=== PATIENT | female | born 1980 | race American Indian/Alaskan Native ===

== ENCOUNTER 2019-05-16 05:09 | Inpatient (IN) | payer MEDICAID, OTHER ==
--- NOTE | 2019-05-16 05:19 | Event Note ---
Date: 05/16/19 Medical screening examination: 38-year-old female, reports that she is not , reports history of hypertension, noncompliance with medications, reports that she has not delivered given within the past 6 weeks, states that she went to bed at 7:00, and woke up at around 3:00, found to have right- sided facial asymmetry, with bilateral forehead sparing, and dysarthria. Accu- Chek within normal limits. Found to be very hypertensive, systolic 258. Code stroke called overhead. Given wake up symptoms, unlikely to be candidate for TPA.
--- NOTE | 2019-05-16 05:44 | Cat Scan Report ---
CT head/brain wo con INDICATION: MAIN: Stroke symptoms. LT SIDED FACIAL DROOPING, SLURRED SPEECH.. TECHNIQUE: All CT scans at this location are performed using the following dose modulation technique: Automated exposure control. CONTRAST: None. COMPARISON: None available. FINDINGS: The ventricular system is appropriate in size and configuration without midline shift. Nega tive for mass, acute stroke or hemorrhage. A chronic white matter infarct is seen adjacent to the fro ntal horn of the left lateral ventricle. Mild chronic appearing white matter changes also seen adjace nt to the frontal horn of the right lateral ventricle. Imaged portions of the paranasal sinuses are clear. IMPRESSION: 1. Negative for acute stroke or hemorrhage. 2. Chronic white matter ischemia and more localized chronic white matter infarct at the left frontal region. CODE STROKE: Called to Dr. Oden in the emergency room at 4:37 AM. This was the time of interpreta tion. Signer Name: Asif Vincent MD Signed: 05/16/2019 5:40 AM Workstation Name: [id number]
[2019-05-16] MEDS ORDERED: BABY ASPIRIN PO ONE (05:46)
--- NOTE | 2019-05-16 05:46 | Emergency Department Report ---
ED Neuro Deficit HPI - General Chief Complaint: Neuro Symptoms/Deficit Stated Complaint: POSS STROKE Source: patient Mode of arrival: Ambulatory Limitations: No Limitations - History of Present Illness Initial Comments: [facility] TeleStroke Metrics: LKW: 1900 Door Time: 0509 [facility] Contacted: 0520 [facility] at Bedside: 0525 NIHSS: 0527 Decision on Alteplase: Not to give as her last known well time is greater than 4.5 hours prior to her presentation. Interventional Candidate: Not a candidate as her symptoms are not consistent with a large vessel proximal occlusion. Chief Complaint: Speech abnormality HPI: Asked to see this patient in telemedicine consultation. Consultation was performed with assistance of ancillary / medical staff at bedside. Verbal consent to perform the examination with telemedicine was obtained. Patient agreed to proceed with the consultation. 38-year-old right-handed -Greek female who comes to the emergency room this morning for evaluation of acute speech abnormality. Patient does not take any aspirin at baseline. She has been off her blood pressure medications over the last 2 months. She denies any previous history for stroke. Patient states she went to bed around 7 PM at her baseline. She woke up at 3 AM this morning with severe slurred speech and a right facial droop. She had no focal motor or sensory deficits. PMH: Hypertension SOC: Negative x3. She lives with family. FMH: Negative for stroke. ROS: 13 point review of systems were reviewed with the patient, and are all negative with the exception of the aforementioned in the history of present illness. VS: Systolic blood pressure at 258 Exam: Patient is in no apparent distress. Patient appears as stated age. No obvious acute respiratory or cardiac distress. Patient is well groomed and well-nourished. 1a- LOC: Keenly responsive - 0 1b- LOC questions: Answers both questions correctly - 0 1c- LOC commands- Performs both tasks correctly- 0 2- Gaze: Normal; no gaze paresis or gaze deviation - 0 3- Visual Noel: normal, no Visual field deficit - 0 4- Facial movements: right facial palsy - 1 5- Upper limb motor - no drift - 0 6- Lower limb motor - no drift - 0 7- Limb Coordination: absent ataxia - 0 8- Sensory: no sensory loss - 0 9- Language - No aphasia - 0 10- Speech - Moderate dysarthria - 1 11- Neglect / Extinction - none found - 0 NIHSS score: 2 Diagnostic Data: CT of the head showed no acute intracranial hemorrhage or large territory stroke; there could be an age indeterminant left frontal white matter lacunar stroke. Blood glucose 107 Medical Data Reviewed: 1.Data?reviewed include clinical labs, radiology,?and medical tests; 2.Tests?results discussed w/performing or interpreting physician; 3.Obtaining/reviewing old medical records; 4.Obtaining?case history from another source; 5.Independent?review of image, tracing, or specimen. Medical Decision Making: - Extensive number of diagnosis or management options are considered below. - Extensive amount of complex data reviewed. - High risk of complication and/or morbidity or mortality are associated with differential diagnostic considerations below. - There may be?uncertain?outcome and increased probability of prolonged functional impairment or high probability of severe prolonged functional impairment associated with some of these differential diagnosis. Differential Diagnosis for Stroke: 1.?Cardioembolic?stroke 2. Small vessel disease/lacune 3. Thromboembolic, [id number] mechanism 4.?Hypercoagulable?state-related infarct 5. Transient ischemic attack 6. Thrombotic mechanism, large artery disease Assessment: 1. Possible acute left frontal subcortical stroke likely due to uncontrolled hypertension 2. Hypertensive urgency 3. Medication noncompliance Recommendations: Patient can be admitted to the hospital for further work-up of her symptoms and stabilization of her blood pressures. Okay to maintain systolic blood pressure to be between 180-200 over the next 24 hours. Start the patient on a baby aspirin. Check MRI of the brain without contrast to rule out any acute intracranial process. Check MRA of the head and neck to evaluate her intracranial and extracranial blood vessels. Check hemoglobin A1c and lipid panel. Check urine drug screen. Consult PT, OT, ST. Continue supportive care. Plan of care was discussed with the patient. Thank you for allowing [facility] to participate in the care of your patient. Please call me, Dr. Hoyt, with any questions at [phone]. Case discussed with the ER staff and Dr. Oden. Critical Care notation: I was called to see this critical patient emergently. I personally evaluated this critical patient for acute stroke evaluation, and determining their eligibility for IV Alteplase and interventional therapies. I have spent approximately 9 minutes with the patient, including time at bedside, time discussing the case with other physicians, reviewing plan of care, and time independently reviewing the records and scans. - Related Data Home Medications: Previous Rx's Medication Instructions Recorded Last Taken Type Labetalol HCl 300 mg PO BID #60 tablet 01/19/16 Unknown Rx Nitrofurantoin Pi[place]/M-Cryst 100 mg PO Q12HR #20 capsule 01/19/16 Unknown Rx [Macrobid CAP] Allergies/Adverse Reactions: Allergies Allergy/AdvReac Type Severity Reaction Status Date / Time No Known Allergies Allergy Verified 01/19/16 04:03 ED Review of Systems ROS: Stated complaint: POSS STROKE Other details as noted in HPI ED Past Medical Hx - Past Medical History Previous Medical History?: Yes Hx Hypertension: Yes Additional medical history: Obesity - Surgical History Past Surgical History?: No - Social History Smoking Status: Never Smoker Substance Use Type: None - Medications Home Medications: Home Medications Medication Instructions Recorded Confirmed Last Taken Type Labetalol HCl 300 mg PO BID #60 tablet 01/19/16 Unknown Rx Nitrofurantoin Piute/M-Cryst 100 mg PO Q12HR #20 capsule 01/19/16 Unknown Rx [Macrobid CAP] ED Neuro Physical Exam - General Limitations: No Limitations Suspected Stroke: Yes - NIHSS Assessment Interval: Baseline 1a. Level of Consciousness: alert/keenly responsive 1b. LOC Questions: answers both correctly 1c. LOC Commands: performs tasks correctly 2. Best Gaze: normal 3. Visual: no visual loss 4. Facial Palsy: minor paralysis 5b. Motor Arm Right: no drift 5a. Motor Arm Left: no drift 6a. Motor Leg Left: no drift 6b. Motor Leg Right: no drift 7. Limb Ataxia: absent 8. Sensory: normal 9. Best Language: no aphasia 10. Dysarthria: mild/moderate dysarthria 11. Extinction/Inattention: no abnormality Total Score: 2 Stroke Severity: Minor Stroke ED Course Vital Signs 05/16/19 05:14 Temperature 98.3 F Pulse Rate 94 H Respiratory 20 Rate Blood Pressure 258/153 O2 Sat by Pulse 98 Oximetry - Lab Data Lab Results 05/16/19 Range/Units 05:23 POC Glucose 107 H (70-105) Critical care attestation.: If time is entered above; I have spent that time in minutes in the direct care of this critically ill patient, excluding procedure time. 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
[2019-05-16 05:51] LABS: Basophils # (Auto) 0.1 K/mm3 (0.0-0.1); Basophils % (Auto) 1.3 % (0.0-1.8); Eosinophils # (Auto) 0.1 K/mm3 (0.0-0.4); Eosinophils % (Auto) 2.4 % (0.0-4.3); Hematocrit 30.4 % (30.3-42.9); Hemoglobin 9.6 gm/dl (10.1-14.3); Lymphocytes # (Auto) 1.4 K/mm3 (1.2-5.4); Lymphocytes % (Auto) 29.1 % (13.4-35.0); Mean Corpuscular HGB Conc 32 % (30-34); Mean Corpuscular Volume 73 fl (79-97); Monocytes # (Auto) 0.4 K/mm3 (0.0-0.8); Monocytes % (Auto) 7.9 % (0.0-7.3); Platelet Count 322 K/mm3 (140-440); Red Blood Count 4.14 M/mm3 (3.65-5.03); Red Cell Distribution Width 19.1 % (13.2-15.2)
[2019-05-16 06:01] LABS: INR 0.97 (0.87-1.13)
[2019-05-16 06:02] LABS: Partial Thromboplastin Time 28.2 Sec. (24.2-36.6); Thrombin Time 15.6 Sec. (15.1-19.6)
[2019-05-16 06:08] LABS: Creatine Kinase MB 1.4 ng/mL (0.0-4.0)
[2019-05-16 06:10] LABS: HDL Cholesterol 52 mg/dL (40-59); LDL Cholesterol,Direct 115 mg/dL (50-130)
--- NOTE | 2019-05-16 06:46 | Emergency Department Report ---
ED Neuro Deficit HPI - General Chief Complaint: Neuro Symptoms/Deficit Stated Complaint: POSS STROKE Time Seen by Provider: 05/16/19 06:09 Source: patient Mode of arrival: Ambulatory Limitations: No Limitations - History of Present Illness Initial Comments: 38-year-old female presents to ED with slurred speech and right facial droop. Patient states she awoke this morning with these symptoms. Patient reports she went to bed last night at around 7 PM and was normal. The patient denies any extremity weakness or numbness. Patient has a history of hypertension, has been out of her BP meds 2 months. -: This morning Location: speech, dysarthria Presenting Symptoms: Present: Facial Droop/Numbness, Unable to Speak Clearly History of same: No Severity: mild Quality: constant Improves With: none Worsens With: none On Anticoagulants: No Associated Symptoms: denies other symptoms Treatments Prior to Arrival: none - Related Data Home Medications: Previous Rx's Medication Instructions Recorded Last Taken Type Labetalol HCl 300 mg PO BID #60 tablet 01/19/16 Unknown Rx Nitrofurantoin Powell/M-Cryst 100 mg PO Q12HR #20 capsule 01/19/16 Unknown Rx [Macrobid CAP] Allergies/Adverse Reactions: Allergies Allergy/AdvReac Type Severity Reaction Status Date / Time No Known Allergies Allergy Verified 01/19/16 04:03 ED Review of Systems ROS: Stated complaint: POSS STROKE Other details as noted in HPI Comment: All other systems reviewed and negative Constitutional: denies: chills, fever Respiratory: denies: shortness of breath Cardiovascular: denies: chest pain Gastrointestinal: denies: nausea, vomiting Neurological: other (reports facial droop and slurred speech). denies: headache, numbness ED Past Medical Hx - Past Medical History Previous Medical History?: Yes Hx Hypertension: Yes Additional medical history: Obesity - Surgical History Past Surgical History?: No - Social History Smoking Status: Never Smoker Substance Use Type: None - Medications Home Medications: Home Medications Medication Instructions Recorded Confirmed Last Taken Type Labetalol HCl 300 mg PO BID #60 tablet 01/19/16 Unknown Rx Nitrofurantoin Powell/M-Cryst 100 mg PO Q12HR #20 capsule 01/19/16 Unknown Rx [Macrobid CAP] ED Neuro Physical Exam - General Limitations: No Limitations General appearance: alert Suspected Stroke: Yes - Head Head exam: Present: atraumatic, normocephalic - Eye Eye exam: Present: normal appearance, PERRL, EOMI - ENT ENT exam: Present: mucous membranes moist - Neck Neck exam: Present: normal inspection - Respiratory Respiratory exam: Present: normal lung sounds bilaterally. Absent: respiratory distress - Cardiovascular Cardiovascular Exam: Present: regular rate, normal rhythm - GI/Abdominal GI/Abdominal exam: Present: soft. Absent: distended, tenderness - Extremities Exam Extremities exam: Present: normal inspection - Neurological Exam Neurological exam: Present: alert, oriented X3 - NIHSS Assessment Interval: Baseline 1a. Level of Consciousness: alert/keenly responsive 1b. LOC Questions: answers both correctly 1c. LOC Commands: performs tasks correctly 2. Best Gaze: normal 3. Visual: no visual loss 4. Facial Palsy: minor paralysis 5b. Motor Arm Right: no drift 5a. Motor Arm Left: no drift 6a. Motor Leg Left: no drift 6b. Motor Leg Right: no drift 7. Limb Ataxia: absent 8. Sensory: normal 9. Best Language: no aphasia 10. Dysarthria: mild/moderate dysarthria 11. Extinction/Inattention: no abnormality Total Score: 2 Stroke Severity: Minor Stroke - Psychiatric Psychiatric exam: Present: normal affect, normal mood - Skin Skin exam: Present: warm, dry, intact, normal color ED Course Vital Signs 05/16/19 05/16/19 05/16/19 05:14 05:27 05:31 Temperature 98.3 F Pulse Rate 94 H 90 80 Respiratory 20 11 L 15 Rate Blood Pressure 258/153 Blood Pressure [Right] O2 Sat by Pulse 98 100 98 Oximetry 05/16/19 05/16/19 05/16/19 05:40 05:49 06:01 Temperature Pulse Rate 82 85 Respiratory 18 16 23 Rate Blood Pressure 244/130 227/142 Blood Pressure [Right] O2 Sat by Pulse 99 100 98 Oximetry 05/16/19 05/16/19 05/16/19 06:15 06:31 06:45 Temperature Pulse Rate 67 64 68 Respiratory 13 12 14 Rate Blood Pressure 227/142 230/108 244/130 Blood Pressure [Right] O2 Sat by Pulse 100 100 99 Oximetry 05/16/19 05/16/19 05/16/19 07:13 07:15 07:17 Temperature Pulse Rate 70 77 Respiratory 16 Rate Blood Pressure 209/111 218/95 Blood Pressure 218/95 [Right] O2 Sat by Pulse 98 100 98 Oximetry 05/16/19 05/16/19 05/16/19 07:31 07:37 07:45 Temperature Pulse Rate 77 67 Respiratory 19 16 19 Rate Blood Pressure 218/95 218/95 Blood Pressure [Right] O2 Sat by Pulse 99 98 99 Oximetry 05/16/19 05/16/19 05/16/19 08:01 08:15 08:31 Temperature Pulse Rate 60 66 72 Respiratory 8 L 21 18 Rate Blood Pressure 216/103 216/103 216/103 Blood Pressure [Right] O2 Sat by Pulse 100 99 97 Oximetry 05/16/19 05/16/19 05/16/19 08:45 09:01 09:15 Temperature Pulse Rate 73 72 70 Respiratory 21 21 21 Rate Blood Pressure 197/103 170/90 160/94 Blood Pressure [Right] O2 Sat by Pulse 96 99 98 Oximetry 05/16/19 05/16/19 09:31 10:31 Temperature Pulse Rate 65 66 Respiratory 19 Rate Blood Pressure 184/91 186/106 Blood Pressure [Right] O2 Sat by Pulse 100 Oximetry - Lab Data Result diagrams: 05/16/19 05:35 Lab Results 05/16/19 05/16/19 05/16/19 Range/Units 02:54 05:23 05:35 WBC 5.0 (4.5-11.0) K/mm3 RBC 4.14 (3.65-5.03) M/mm3 Hgb 9.6 L (10.1-14.3) gm/dl Hct 30.4 (30.3-42.9) % MCV 73 L (79-97) fl MCH 23 L (28-32) pg MCHC 32 (30-34) % RDW 19.1 H (13.2-15.2) % Plt Count 322 (140-440) K/mm3 Lymph % (Auto) 29.1 (13.4-35.0) % Powell % (Auto) 7.9 H (0.0-7.3) % Eos % (Auto) 2.4 (0.0-4.3) % Baso % (Auto) 1.3 (0.0-1.8) % Lymph # 1.4 (1.2-5.4) K/mm3 Powell # 0.4 (0.0-0.8) K/mm3 Eos # 0.1 (0.0-0.4) K/mm3 Baso # 0.1 (0.0-0.1) K/mm3 Seg Neutrophils % 59.3 (40.0-70.0) % Seg Neutrophils # 2.9 (1.8-7.7) K/mm3 PT 12.6 (12.2-14.9) Sec. INR 0.97 (0.87-1.13) APTT 28.2 (24.2-36.6) Sec. Thrombin Time 15.6 (15.1-19.6) Sec. POC Glucose 107 H (70-105) Magnesium (1.7-2.3) mg/dL Total Creatine Kinase (30-135) units/L CK-MB (CK-2) (0.0-4.0) ng/mL CK-MB (CK-2) Rel Index (0-4) Troponin T (0.00-0.029) ng/mL Triglycerides (2-149) mg/dL Cholesterol (50-199) mg/dL LDL Cholesterol Direct (50-130) mg/dL HDL Cholesterol (40-59) mg/dL Cholesterol/HDL Ratio % TSH (0.270-4.200) mlU/mL HCG, Quant (0-4) mIU/mL Salicylates (2.8-20.0) mg/dL Acetaminophen (10.0-30.0) ug/mL Plasma/Serum Alcohol (0-0.07) % 05/16/19 05/16/19 05/16/19 Range/Units 05:35 05:35 05:35 WBC (4.5-11.0) K/mm3 RBC (3.65-5.03) M/mm3 Hgb (10.1-14.3) gm/dl Hct (30.3-42.9) % MCV (79-97) fl MCH (28-32) pg MCHC (30-34) % RDW (13.2-15.2) % Plt Count (140-440) K/mm3 Lymph % (Auto) (13.4-35.0) % Powell % (Auto) (0.0-7.3) % Eos % (Auto) (0.0-4.3) % Baso % (Auto) (0.0-1.8) % Lymph # (1.2-5.4) K/mm3 Powell # (0.0-0.8) K/mm3 Eos # (0.0-0.4) K/mm3 Baso # (0.0-0.1) K/mm3 Seg Neutrophils % (40.0-70.0) % Seg Neutrophils # (1.8-7.7) K/mm3 PT (12.2-14.9) Sec. INR (0.87-1.13) APTT (24.2-36.6) Sec. Thrombin Time (15.1-19.6) Sec. POC Glucose (70-105) Magnesium 1.90 (1.7-2.3) mg/dL Total Creatine Kinase 162 H (30-135) units/L CK-MB (CK-2) 1.4 (0.0-4.0) ng/mL CK-MB (CK-2) Rel Index 0.8 (0-4) Troponin T < 0.010 (0.00-0.029) ng/mL Triglycerides 47 (2-149) mg/dL Cholesterol 156 (50-199) mg/dL LDL Cholesterol Direct 115 (50-130) mg/dL HDL Cholesterol 52 (40-59) mg/dL Cholesterol/HDL Ratio 3.00 % TSH (0.270-4.200) mlU/mL HCG, Quant < 2 (0-4) mIU/mL Salicylates (2.8-20.0) mg/dL Acetaminophen (10.0-30.0) ug/mL Plasma/Serum Alcohol < 0.01 (0-0.07) % 05/16/19 05/16/19 05/16/19 Range/Units 05:35 05:35 05:35 WBC (4.5-11.0) K/mm3 RBC (3.65-5.03) M/mm3 Hgb (10.1-14.3) gm/dl Hct (30.3-42.9) % MCV (79-97) fl MCH (28-32) pg MCHC (30-34) % RDW (13.2-15.2) % Plt Count (140-440) K/mm3 Lymph % (Auto) (13.4-35.0) % Powell % (Auto) (0.0-7.3) % Eos % (Auto) (0.0-4.3) % Baso % (Auto) (0.0-1.8) % Lymph # (1.2-5.4) K/mm3 Powell # (0.0-0.8) K/mm3 Eos # (0.0-0.4) K/mm3 Baso # (0.0-0.1) K/mm3 Seg Neutrophils % (40.0-70.0) % Seg Neutrophils # (1.8-7.7) K/mm3 PT (12.2-14.9) Sec. INR (0.87-1.13) APTT (24.2-36.6) Sec. Thrombin Time (15.1-19.6) Sec. POC Glucose (70-105) Magnesium (1.7-2.3) mg/dL Total Creatine Kinase (30-135) units/L CK-MB (CK-2) (0.0-4.0) ng/mL CK-MB (CK-2) Rel Index (0-4) Troponin T (0.00-0.029) ng/mL Triglycerides (2-149) mg/dL Cholesterol (50-199) mg/dL LDL Cholesterol Direct (50-130) mg/dL HDL Cholesterol (40-59) mg/dL Cholesterol/HDL Ratio % TSH 2.560 (0.270-4.200) mlU/mL HCG, Quant (0-4) mIU/mL Salicylates < 0.3 L (2.8-20.0) mg/dL Acetaminophen < 5.0 L (10.0-30.0) ug/mL Plasma/Serum Alcohol (0-0.07) % - EKG Data -: EKG Interpreted by Nm EKG shows normal: sinus rhythm, axis, intervals, QRS complexes, ST-T waves Rate: normal Interpretation: no acute changes - Radiology Data Radiology results: report reviewed, image reviewed - Medical Decision Making 38 yo F with facial droop and slurred speech upon waking. No extremity numbness of weakness. Pt is A&O x 3. NIHSS= 2. CT Head negative for any acute abnor mality. Pt seen and evaluated by teleneurologist. Not a tPA candidate. SBP goal of 180-200. Pt extremely hypertensive, labetalol given. Will admit to hospitalist for further management. - Differential Diagnosis CVA, Mejia's Palsy Critical care attestation.: If time is entered above; I have spent that time in minutes in the direct care of this critically ill patient, excluding procedure time. 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
[2019-05-16] MEDS ORDERED: NORMODYNE IV ONE (06:48)
[2019-05-16] MEDS ORDERED: MILK OF MAGNESIA PO PRN (07:35)
[2019-05-16] MEDS ORDERED: SODIUM CHLORIDE FLUSH SYRINGE 10 ML IV PRN ×2 (07:35)
[2019-05-16] MEDS ORDERED: PROVENTIL IH PRN (07:35)
[2019-05-16] MEDS ORDERED: REGLAN PO PRN (07:35)
[2019-05-16] MEDS ORDERED: PHENERGAN PR PRN (07:35)
[2019-05-16] MEDS: SODIUM CHLORIDE FLUSH SYRINGE 10 ML IV SCH ×2 (08:00→22:35)
[2019-05-16] MEDS: CARDENE 50 MG in NACL 0.9% 250ML 230 ML IV SCH ×2 (08:37→20:34)
--- NOTE | 2019-05-16 09:54 | Vascular Lab Report ---
"DUPLEX DOPPLER ULTRASOUND CAROTID, BILATERAL INDICATION: Stroke. Right facial droop and slurring of speech. History of hypertension. COMPARISON: None available. FINDINGS: RIGHT CAROTID: No significant atherosclerotic plaque. CCA velocity: 76.5 cm/sec. ICA peak systolic velocity: 74.8 cm/sec. ICA/CCA PSV Ratio: 0.98. Right Vertebral Artery: Antegrade flow. LEFT CAROTID: No significant atherosclerotic plaque. CCA velocity: 112.9 cm/sec. ICA peak systolic velocity: 84.4 cm/sec. ICA/CCA PSV Ratio: 0.75. Left Vertebral Artery: Antegrade flow. IMPRESSION: 1. Right Internal Carotid Artery: Normal. 2. Left Internal Carotid Artery: Normal. Velocity criteria are extrapolated from diameter data as defined by the Society of Radiologists in Ul trasound Consensus Conference, Radiology 2003; 229;340-346. Degree of || ICA PSV || Plaque || ICA/CCA Stenosis (%) || (cm/sec) || estimate (%) || PSV Ratio - Normal...............<125..............None.................<2.0 - <50....................<125..............<50....................<2.0 - 50-69................125-230.........>50....................2.0-4.0 - >70 but <100....>230..............>50....................>4.0 - Near...................High, low, .....visible................variable occlusion or none - Total...................None.............visible;................N/A occlusion no lumen Signer Name: Rafa Blackman MD Signed: 05/16/2019 9:50 AM Workstation Name: [id number]"
[2019-05-16] MEDS ORDERED: DULCOLAX PR PRN (10:00)
[2019-05-16] MEDS: NORMODYNE PO SCH ×4 (10:31→22:34)
--- NOTE | 2019-05-16 10:42 | History and Physical Report ---
History of Present Illness Date of examination: 05/16/19 Date of admission: 05/16/19 Chief complaint: slurred speech History of present illness: Patient is a 38-year-old female with past medical history of hypertension quit taking her medication about 2 months ago presents to the ED with complaints of slurred speech and right facial droop which started when she woke up this morning she was last known well around 7 PM. During examination in the ED the patient was unable to speak clearly she had to hold jaw multiple times asked to stop speaking as he was uncomfortable for her. She denies any nausea vomiting or diarrhea she denies any prior CVA. She reports that she quit taking her medication due to the effects even made to her body. She was unable to clarify this effects. In the ED she was determined not to be a candidate for TPA and is being admitted for further management. Blood pressure is persistently high with a systolic blood pressure of over 210 Past Medical History Previous Medical History?: Yes Hx Hypertension: Yes Additional medical history: Obesity - Surgical History Past Surgical History?: No - Social History Smoking Status: Never Smoker Substance Use Type: None Past History Past Medical History: hypertension Past Surgical History: No surgical history Social history: no significant social history, full code. denies: smoking, alcohol abuse, IV drug use Family history: no significant family history Medications and Allergies Allergies Allergy/AdvReac Type Severity Reaction Status Date / Time No Known Allergies Allergy Verified 01/19/16 04:03 Home Medications Medication Instructions Recorded Confirmed Last Taken Type Labetalol HCl 300 mg PO BID #60 tablet 01/19/16 Unknown Rx Nitrofurantoin Price/M-Cryst 100 mg PO Q12HR #20 capsule 01/19/16 Unknown Rx [Macrobid CAP] Active Meds: Active Medications Acetaminophen (Tylenol) 650 mg PO Q4H PRN PRN Reason: Pain, Mild (1-3) Albuterol (Proventil) 2.5 mg IH Q3HRT PRN PRN Reason: Shortness Of Breath Aspirin (Aspirin) 325 mg PO QDAY LEXIE Bisacodyl (Dulcolax) 10 mg MO QDAY PRN PRN Reason: Constipation Nicardipine HCl 50 mg/ Sodium (Chloride) 250 mls @ 25 mls/hr IV TITR LEXIE; Protocol Last Titration: 05/16/19 09:17 Dose: 0 mg/hr, 0 mls/hr Documented by: Labetalol HCl (Normodyne) 200 mg PO BID [facility] Last Admin: 05/16/19 10:31 Dose: 200 mg Documented by: Labetalol HCl (Normodyne) 100 mg PO BID [facility] Last Admin: 05/16/19 10:31 Dose: 100 mg Documented by: Magnesium Hydroxide (Milk Of Magnesia) 30 ml PO Q4H PRN PRN Reason: Constipation Metoclopramide HCl (Reglan) 10 mg PO Q6H PRN PRN Reason: Nausea And Vomiting Ondansetron HCl (Zofran) 4 mg IV Q8H PRN PRN Reason: Nausea And Vomiting Promethazine HCl (Phenergan) 25 mg MO Q6H PRN PRN Reason: Nausea And Vomiting Sodium Chloride (Sodium Chloride Flush Syringe 10 Ml) 10 ml IV BID [facility] Last Admin: 05/16/19 08:00 Dose: 10 ml Documented by: Sodium Chloride (Sodium Chloride Flush Syringe 10 Ml) 10 ml IV PRN PRN PRN Reason: LINE FLUSH Sodium Chloride (Sodium Chloride Flush Syringe 10 Ml) 10 ml IV PRN PRN PRN Reason: LINE FLUSH Exam - Physical Exam Narrative exam: VITAL SIGNS: Reviewed. GENERAL: The patient appears normally developed, Vital signs as documented. HEAD: No signs of head trauma. EYES: Pupils are equal. Extraocular motions intact. EARS: Hearing grossly intact. MOUTH: Oropharynx is normal. NECK: No adenopathy, no JVD. CHEST: Chest with clear breath sounds bilaterally. No wheezes, rales, or rhonchi. CARDIAC: Regular rate and rhythm. S1 and S2, without murmurs, gallops, or rubs. VASCULAR: No Edema. Peripheral pulses normal and equal in all extremities. ABDOMEN: Soft, non tender and non distended. No rebound or guarding, and no masses palpated. Bowel Sounds normal. MUSCULOSKELETAL: Good range of motion of all major joints. Extremities without clubbing, cyanosis or edema. NEUROLOGIC EXAM: Alert and oriented x 3 No focal sensory or strength deficits. Speech slurred with visible right facial droop. Follows commands. PSYCHIATRIC: Mood normal. SKIN: detial exam as documented in skin assessment - Constitutional Vitals: Temp Pulse Resp BP Pulse Ox 98.3 F 66 19 186/106 100 05/16/19 05:14 05/16/19 10:31 05/16/19 09:31 05/16/19 10:31 05/16/19 09:31 Results - Labs CBC & Chem 7: 05/16/19 05:35 Labs: Laboratory Last Values WBC 5.0 K/mm3 (4.5-11.0) 05/16/19 05:35 RBC 4.14 M/mm3 (3.65-5.03) 05/16/19 05:35 Hgb 9.6 gm/dl (10.1-14.3) L 05/16/19 05:35 Hct 30.4 % (30.3-42.9) 05/16/19 05:35 MCV 73 fl (79-97) L 05/16/19 05:35 MCH 23 pg (28-32) L 05/16/19 05:35 MCHC 32 % (30-34) 05/16/19 05:35 RDW 19.1 % (13.2-15.2) H 05/16/19 05:35 Plt Count 322 K/mm3 (140-440) 05/16/19 05:35 Lymph % (Auto) 29.1 % (13.4-35.0) 05/16/19 05:35 Price % (Auto) 7.9 % (0.0-7.3) H 05/16/19 05:35 Eos % (Auto) 2.4 % (0.0-4.3) 05/16/19 05:35 Baso % (Auto) 1.3 % (0.0-1.8) 05/16/19 05:35 Lymph # 1.4 K/mm3 (1.2-5.4) 05/16/19 05:35 Price # 0.4 K/mm3 (0.0-0.8) 05/16/19 05:35 Eos # 0.1 K/mm3 (0.0-0.4) 05/16/19 05:35 Baso # 0.1 K/mm3 (0.0-0.1) 05/16/19 05:35 Seg Neutrophils % 59.3 % (40.0-70.0) 05/16/19 05:35 Seg Neutrophils # 2.9 K/mm3 (1.8-7.7) 05/16/19 05:35 PT 12.6 Sec. (12.2-14.9) 05/16/19 02:54 INR 0.97 (0.87-1.13) 05/16/19 02:54 APTT 28.2 Sec. (24.2-36.6) 05/16/19 02:54 15.6 Sec. (15.1-19.6) 05/16/19 02:54 POC Glucose 107 (70-105) H 05/16/19 05:23 Magnesium 1.90 mg/dL (1.7-2.3) 05/16/19 05:35 162 units/L (30-135) H 05/16/19 05:35 CK-MB (CK-2) 1.4 ng/mL (0.0-4.0) 05/16/19 05:35 CK-MB (CK-2) Rel Index 0.8 (0-4) 05/16/19 05:35 < 0.010 ng/mL (0.00-0.029) 05/16/19 05:35 Triglycerides 47 mg/dL (2-149) 05/16/19 05:35 Cholesterol 156 mg/dL (50-199) 05/16/19 05:35 115 mg/dL (50-130) 05/16/19 05:35 52 mg/dL (40-59) 05/16/19 05:35 3.00 % 05/16/19 05:35 TSH 2.560 mlU/mL (0.270-4.200) 05/16/19 05:35 HCG, Quant < 2 mIU/mL (0-4) 05/16/19 05:35 Salicylates < 0.3 mg/dL (2.8-20.0) L 05/16/19 05:35 Acetaminophen < 5.0 ug/mL (10.0-30.0) L 05/16/19 05:35 Plasma/Serum Alcohol < 0.01 % (0-0.07) 05/16/19 05:35 Assessment and Plan Assessment and plan: Patient is a 38-year-old female with past medical history of hypertension quit taking her medication about 2 months ago presents to the ED with complaints of slurred speech and right facial droop which started when she woke up this morning she was last known well around 7 PM. During examination in the ED the patient was unable to speak clearly she had to hold jaw multiple times asked to stop speaking as he was uncomfortable for her. She denies any nausea vomiting or diarrhea she denies any prior CVA. She reports that she quit taking her medication due to the effects even made to her body. She was unable to clarify this effects. In the ED she was determined not to be a candidate for TPA and is being admitted for further management. Blood pressure is persistently high with a systolic blood pressure of [address] of the head showed no acute intracranial hemorrhage or large territory stroke; there could be an age indeterminant left frontal white matter lacunar stroke. Assessment: Possible acute left frontal subcortical stroke likely due to uncontrolled hypertension Hypertensive urgency Medication noncompliance Plan Admit to IMCU Start per Teleneurology recommendation Maintain systolic blood pressure to be between 180-200 over the next 24 hours. Baby aspirin. Neurochecks Obtain MRI of the brain without contrast to rule out any acute intracranial process. obtain MRA of the head and neck to evaluate her intracranial and extracranial blood vessels. Check hemoglobin A1c and lipid panel. Check urine drug screen. Consult PT, OT, ST. Continue supportive care. Plan of care was discussed with the patient. Extensive counselling given to patient on medication compliance and need to follow up with doctors Advance Directives: Yes Plan of care discussed with patient/family: Yes
[2019-05-16] MEDS: TYLENOL PO PRN ×2 (12:52→19:20)
[2019-05-16] MEDS: ZOFRAN IV PRN (20:32)
[2019-05-16] MEDS ORDERED: NON-FORMULARY (Labetalol Hcl [Labetalol Hcl] 300 MG) PO SCH (22:00)
[2019-05-17 05:32] LABS: Eosinophils # (Auto) 0.1 K/mm3 (0.0-0.4); Eosinophils % (Auto) 2.9 % (0.0-4.3); Hematocrit 28.6 % (30.3-42.9); Hemoglobin 8.8 gm/dl (10.1-14.3); Lymphocytes # (Auto) 1.2 K/mm3 (1.2-5.4); Lymphocytes % (Auto) 24.9 % (13.4-35.0); Mean Corpuscular HGB Conc 31 % (30-34); Mean Corpuscular Volume 75 fl (79-97); Monocytes # (Auto) 0.4 K/mm3 (0.0-0.8); Monocytes % (Auto) 9.2 % (0.0-7.3); Platelet Count 290 K/mm3 (140-440); Red Blood Count 3.81 M/mm3 (3.65-5.03); Red Cell Distribution Width 19.3 % (13.2-15.2)
[2019-05-17 05:44] LABS: BUN/Creatinine Ratio 13; Blood Urea Nitrogen 9 mg/dL (7-17); Calcium 8.7 mg/dL (8.4-10.2); Hemolysis Index 1
[2019-05-17] MEDS: ASPIRIN PO SCH (10:00)
[2019-05-17] MEDS: NORMODYNE PO SCH ×2 (10:00)
[2019-05-17] MEDS: SODIUM CHLORIDE FLUSH SYRINGE 10 ML IV SCH ×2 (10:57→21:32)
--- NOTE | 2019-05-17 11:23 | Progress Note ---
Assessment and Plan Assessment and plan: Patient is a 38-year-old female with past medical history of hypertension quit taking her medication about 2 months ago presents to the ED with complaints of slurred speech and right facial droop which started when she woke up this morning she was last known well around 7 PM. During examination in the ED the patient was unable to speak clearly she had to hold jaw multiple times asked to stop speaking as he was uncomfortable for her. She denies any nausea vomiting or diarrhea she denies any prior CVA. She reports that she quit taking her medication due to the effects even made to her body. She was unable to clarify this effects. In the ED she was determined not to be a candidate for TPA and is being admitted for further management. Blood pressure is persistently high with a systolic blood pressure of [address] of the head showed no acute intracranial hemorrhage or large territory stroke; there could be an age indeterminant left frontal white matter lacunar stroke. Assessment: Possible acute left frontal subcortical stroke likely due to uncontrolled hypertension Hypertensive urgency Medication noncompliance Plan Continue supportive care Start combination of ACEI and HCTZ. Patient informes me she has 3 children and does not plan to get under any circumstance she understands associated risk with and the medications, also states she is not breast feeding she does not wish to continue labetalol due to the effect it gives her. Start per Teleneurology recommendation Neurology consulted wean off cardene drip Baby aspirin. Neurochecks AWAIT MRI of the brain without contrast to rule out any acute intracranial process. AWAIT MRA of the head and neck to evaluate her intracranial and extracranial blood vessels. Check hemoglobin A1c and lipid panel. UDS Negative. Consult PT, OT, ST. Continue supportive care. Plan of care was discussed with the patient. Extensive counselling given to patient on medication compliance and need to follow up with doctors Transfer to Tele. History Interval history: Patient seen and examined, still with right facial droop and slurred speech although noted some improvement. She denies any chest pain, nausea, vomiting. Hospitalist Physical - Physical exam Narrative exam: VITAL SIGNS: Reviewed. GENERAL: The patient appears normally developed, Vital signs as documented. HEAD: No signs of head trauma. EYES: Pupils are equal. Extraocular motions intact. EARS: Hearing grossly intact. MOUTH: Oropharynx is normal. NECK: No adenopathy, no JVD. CHEST: Chest with clear breath sounds bilaterally. No wheezes, rales, or rhonchi. CARDIAC: Regular rate and rhythm. S1 and S2, without murmurs, gallops, or rubs. VASCULAR: No Edema. Peripheral pulses normal and equal in all extremities. ABDOMEN: Soft, non tender and non distended. No rebound or guarding, and no masses palpated. Bowel Sounds normal. MUSCULOSKELETAL: Good range of motion of all major joints. Extremities without clubbing, cyanosis or edema. NEUROLOGIC EXAM: Alert and oriented x 3 No focal sensory or strength deficits. Speech slurred with visible right facial droop. Follows commands. PSYCHIATRIC: Mood normal. SKIN: detial exam as documented in skin assessment - Constitutional Vitals: Temp Pulse Resp BP Pulse Ox 97.9 F 60 17 156/56 100 05/17/19 08:00 05/17/19 10:00 05/16/19 17:15 05/17/19 10:00 05/17/19 08:10 Results - Labs CBC & Chem 7: 05/17/19 04:32 05/17/19 04:32 Labs: Laboratory Last Values WBC 4.7 K/mm3 (4.5-11.0) 05/17/19 04:32 RBC 3.81 M/mm3 (3.65-5.03) 05/17/19 04:32 Hgb 8.8 gm/dl (10.1-14.3) L 05/17/19 04:32 Hct 28.6 % (30.3-42.9) L 05/17/19 04:32 MCV 75 fl (79-97) L 05/17/19 04:32 MCH 23 pg (28-32) L 05/17/19 04:32 MCHC 31 % (30-34) 05/17/19 04:32 RDW 19.3 % (13.2-15.2) H 05/17/19 04:32 Plt Count 290 K/mm3 (140-440) 05/17/19 04:32 Lymph % (Auto) 24.9 % (13.4-35.0) 05/17/19 04:32 [place] % (Auto) 9.2 % (0.0-7.3) H 05/17/19 04:32 Eos % (Auto) 2.9 % (0.0-4.3) 05/17/19 04:32 Baso % (Auto) 1.0 % (0.0-1.8) 05/17/19 04:32 Lymph # 1.2 K/mm3 (1.2-5.4) 05/17/19 04:32 [place] # 0.4 K/mm3 (0.0-0.8) 05/17/19 04:32 Eos # 0.1 K/mm3 (0.0-0.4) 05/17/19 04:32 Baso # 0.0 K/mm3 (0.0-0.1) 05/17/19 04:32 Seg Neutrophils % 62.0 % (40.0-70.0) 05/17/19 04:32 Seg Neutrophils # 2.9 K/mm3 (1.8-7.7) 05/17/19 04:32 PT 12.6 Sec. (12.2-14.9) 05/16/19 02:54 INR 0.97 (0.87-1.13) 05/16/19 02:54 APTT 28.2 Sec. (24.2-36.6) 05/16/19 02:54 15.6 Sec. (15.1-19.6) 05/16/19 02:54 Sodium 138 mmol/L (137-145) 05/17/19 04:32 Potassium 3.7 mmol/L (3.6-5.0) 05/17/19 04:32 Chloride 104.2 mmol/L (98-107) 05/17/19 04:32 Carbon Dioxide 22 mmol/L (22-30) 05/17/19 04:32 16 mmol/L 05/17/19 04:32 BUN 9 mg/dL (7-17) 05/17/19 04:32 0.7 mg/dL (0.7-1.2) 05/17/19 04:32 Estimated GFR > 60 ml/min 05/17/19 04:32 13 % 05/17/19 04:32 Glucose 102 mg/dL (65-100) H 05/17/19 04:32 POC Glucose 107 (70-105) H 05/16/19 05:23 5.0 % (4-6) 05/17/19 04:32 Calcium 8.7 mg/dL (8.4-10.2) 05/17/19 04:32 Magnesium 1.90 mg/dL (1.7-2.3) 05/16/19 05:35 162 units/L (30-135) H 05/16/19 05:35 CK-MB (CK-2) 1.4 ng/mL (0.0-4.0) 05/16/19 05:35 CK-MB (CK-2) Rel Index 0.8 (0-4) 05/16/19 05:35 < 0.010 ng/mL (0.00-0.029) 05/16/19 05:35 Triglycerides 47 mg/dL (2-149) 05/16/19 05:35 Cholesterol 156 mg/dL (50-199) 05/16/19 05:35 115 mg/dL (50-130) 05/16/19 05:35 52 mg/dL (40-59) 05/16/19 05:35 3.00 % 05/16/19 05:35 TSH 2.560 mlU/mL (0.270-4.200) 05/16/19 05:35 HCG, Quant < 2 mIU/mL (0-4) 05/16/19 05:35 Salicylates < 0.3 mg/dL (2.8-20.0) L 05/16/19 05:35 Acetaminophen < 5.0 ug/mL (10.0-30.0) L 05/16/19 05:35 Plasma/Serum Alcohol < 0.01 % (0-0.07) 05/16/19 05:35 Active Medications - Current Medications Current Medications: Generic Name Dose Route Start Last Admin Trade Name Freq PRN Reason Stop Dose Admin Acetaminophen 650 mg 05/16/19 07:35 05/16/19 19:20 Tylenol PO 650 mg Q4H PRN Administration Pain, Mild (1-3) Albuterol 2.5 mg 05/16/19 07:35 Proventil IH Q3HRT PRN Shortness Of Breath Aspirin 325 mg 05/17/19 10:00 05/17/19 10:00 Aspirin PO 325 mg QDAY LEXIE Administration Bisacodyl 10 mg 05/16/19 10:00 Dulcolax AR QDAY PRN Constipation Hydrochlorothiazide 12.5 mg 05/17/19 12:00 Hctz PO QDAY LEXIE Labetalol HCl 200 mg 05/16/19 10:00 05/17/19 10:00 Normodyne PO 200 mg BID LEXIE Administration Labetalol HCl 100 mg 05/16/19 10:00 05/17/19 10:00 Normodyne PO 100 mg BID LEXIE Administration Lisinopril 40 mg 05/17/19 12:00 Zestril PO QDAY [facility] Magnesium Hydroxide 30 ml 05/16/19 07:35 Milk Of Magnesia PO Q4H PRN Constipation Metoclopramide HCl 10 mg 05/16/19 07:35 Reglan PO Q6H PRN Nausea And Vomiting Ondansetron HCl 4 mg 05/16/19 07:35 05/16/19 20:32 Zofran IV 4 mg Q8H PRN Administration Nausea And Vomiting Promethazine HCl 25 mg 05/16/19 07:35 Phenergan AR Q6H PRN Nausea And Vomiting Sodium Chloride 10 ml 05/16/19 10:00 05/17/19 10:57 Sodium Chloride Flush Syringe 10 Ml IV 10 ml BID LEXIE Administration Sodium Chloride 10 ml 05/16/19 07:35 Sodium Chloride Flush Syringe 10 Ml IV PRN PRN LINE FLUSH
[2019-05-17] MEDS: HCTZ PO SCH (12:00)
[2019-05-17] MEDS: ZESTRIL PO SCH (12:00)
[2019-05-17] MEDS ORDERED: HCTZ PO SCH ×2 (12:00)
[2019-05-17 14:48] LABS: Amphetamine Screen,Urine PRESUMPTIVE NEGATIVE; Benzodiazepines Screen,Urine PRESUMPTIVE NEGATIVE; Cannabinoid Screen,Urine PRESUMPTIVE NEGATIVE; Cocaine Screen,Urine PRESUMPTIVE NEGATIVE; Methadone Screen,Urine PRESUMPTIVE NEGATIVE; Opiate Screen,Urine PRESUMPTIVE NEGATIVE
--- NOTE | 2019-05-17 20:10 | Consultation ---
History of Present Illness Consult date: 05/17/19 Reason for Consult: Right facial droop, dysarthria Chief complaint: Right facial droop, dysarthria History of present illness: Patient is a 38 y/o woman w/ a h/o HTN, obesity. She went to sleep at 7pm on Friday, and awoke at 3am on Friday morning to go to work. She noted that she had a right facial droop, and significant dysarthria when trying to speak to her son. She then dropped off her son and went to work, and ultimately came to the ER from work. Patient continues to have right facial droop and dysarthria. She also notes that she is having difficulty writing with the right hand. SBP was 258 when checked that night. Patient has a h/o HTN, however has been non- compliant with medications for the past 2 months. Past History Past Medical History: hypertension Past Surgical History: No surgical history Social history: no significant social history, full code. denies: smoking, alcohol abuse, IV drug use Family history: no significant family history Medications and Allergies Allergies Allergy/AdvReac Type Severity Reaction Status Date / Time No Known Allergies Allergy Verified 01/19/16 04:03 Home Medications Medication Instructions Recorded Confirmed Last Taken Type Labetalol HCl 300 mg PO BID #60 tablet 01/19/16 05/16/19 05/16/19 09:00 Rx 300 Nitrofurantoin Bennett/M-Cryst 100 mg PO Q12HR #20 capsule 01/19/16 05/16/19 Unknown Rx [Macrobid CAP] Active Meds: Active Medications Acetaminophen (Tylenol) 650 mg PO Q4H PRN PRN Reason: Pain, Mild (1-3) Last Admin: 05/16/19 19:20 Dose: 650 mg Documented by: Albuterol (Proventil) 2.5 mg IH Q3HRT PRN PRN Reason: Shortness Of Breath Aspirin (Aspirin) 325 mg PO QDAY [facility] Last Admin: 05/17/19 10:00 Dose: 325 mg Documented by: Atorvastatin Calcium (Lipitor) 40 mg PO QHS LEXIE Bisacodyl (Dulcolax) 10 mg MA QDAY PRN PRN Reason: Constipation Hydrochlorothiazide (Hctz) 25 mg PO QDAY [facility] Last Admin: 05/17/19 12:00 Dose: 25 mg Documented by: Lisinopril (Zestril) 40 mg PO QDAY [facility] Last Admin: 05/17/19 12:00 Dose: 40 mg Documented by: Magnesium Hydroxide (Milk Of Magnesia) 30 ml PO Q4H PRN PRN Reason: Constipation Metoclopramide HCl (Reglan) 10 mg PO Q6H PRN PRN Reason: Nausea And Vomiting Ondansetron HCl (Zofran) 4 mg IV Q8H PRN PRN Reason: Nausea And Vomiting Last Admin: 05/16/19 20:32 Dose: 4 mg Documented by: Promethazine HCl (Phenergan) 25 mg MA Q6H PRN PRN Reason: Nausea And Vomiting Sodium Chloride (Sodium Chloride Flush Syringe 10 Ml) 10 ml IV BID [facility] Last Admin: 05/17/19 10:57 Dose: 10 ml Documented by: Sodium Chloride (Sodium Chloride Flush Syringe 10 Ml) 10 ml IV PRN PRN PRN Reason: LINE FLUSH Review of Systems All systems: negative Neurological: weakness, change in speech Physical Examination - Vital Signs Vital Signs: Vital Signs Temp Pulse Resp BP Pulse Ox 98.3 F 94 H 20 258/153 98 05/16/19 05:14 05/16/19 05:14 05/16/19 05:14 05/16/19 05:14 05/16/19 05:14 - Constitutional General appearance: comfortable - EENT EENT: Present: ATNC, PERRL, mucous membranes moist, hearing intact, vision intact - Respiratory Respiratory: Present: lungs clear, normal breath sounds - Cardiovascular Cardiovascular: Present: regular rate, normal S1, normal S2 Extremities: Present: no peripheral edema bilatateraly, no clubbing, cyanosis, no inflammation - Gastrointestinal Gastrointestinal: Present: normoactive bowel sounds, soft, non-tender - Integumentary Integumentary: Present: normal - Neurologic Cranial nerve examination: PERRL, EOMI, VFF, V1/V2/V3 grossly intact, tongue midline, facial droop (right lower) Speech examination: other (dysarthria noted) Motor examination - right side: 4/5: biceps, triceps, wrist flexion, wrist extension, finish photographer, 5/5: hip flexors, knee extensors, dorsiflexion, toe extension (EHL), plantarflexion Motor examination - left side: 5/5: biceps, triceps, wrist flexion, wrist extension, finish photographer, hip flexors, knee extensors, dorsiflexion, toe extension (EHL), plantarflexion Detailed sensory examination: intact, light touch Reflexes: 2+: ankle, bicep, knee, tricep Cerebellar examination: other (b/l intact to FTN and HTS) - Musculoskeletal Musculoskeletal: Present: no fluid collection, no pain, normal range of motion - Psychiatric Psychiatric: Present: mood/affect appropriate - Level of Consciousness 1a. Level of Consciousness: alert/keenly responsive - LOC Questions 1b. LOC Questions: answers both correctly - LOC Command 1c. LOC Commands: performs tasks correctly - Best Gaze 2. Best Gaze: normal - Visual 3. Visual: no visual loss - Facial Palsy 4. Facial Palsy: partial paralysis - Motor Arm 5a. Motor Arm Left: no drift 5b. Motor Arm Right: no drift - Motor Leg 6a. Motor Leg Left: no drift 6b. Motor Leg Right: no drift - Limb Ataxia 7. Limb Ataxia: absent - Sensory 8. Sensory: normal - Best Language 9. Best Language: no aphasia - Dysarthria 10. Dysarthria: mild/moderate dysarthria - Extinction and Inattention 11. Extinction/Inattention: no abnormality - Scoring Total Score: 3 Stroke Severity: Minor Stroke Results - Laboratory Findings CBC and BMP: 05/17/19 04:32 05/17/19 04:32 Abnormal Lab Findings: Abnormal Labs 05/16/19 05/16/19 05/16/19 05:23 05:35 05:35 Hgb 9.6 L Hct MCV 73 L MCH 23 L RDW 19.1 H [place] % (Auto) 7.9 H Glucose POC Glucose 107 H Total Creatine Kinase 162 H Salicylates Acetaminophen 05/16/19 05/16/19 05/17/19 05:35 05:35 04:32 Hgb 8.8 L Hct 28.6 L MCV 75 L MCH 23 L RDW 19.3 H [place] % (Auto) 9.2 H Glucose POC Glucose Total Creatine Kinase Salicylates < 0.3 L Acetaminophen < 5.0 L 05/17/19 04:32 Hgb Hct MCV MCH RDW [place] % (Auto) Glucose 102 H POC Glucose Total Creatine Kinase Salicylates Acetaminophen Assessment and Plan Patient is a 38 y/o woman w/ a h/o HTN, obesity, who resents with right facial droop and mild right upper extremity weakness. According patient's clinical fi ndings, it is possible that the patient has had an acute ischemic stroke. The likely etiology of this is uncontrolled hypertension, as patient had elevated blood pressure on admission, and has been noncompliant with antihypertensive medications for the past couple months. Plan: 1. Stroke: - MRI brain and MRA head pending. Echocardiogram: EF 55-60%, bubble study negative, left atrial normal size. - CT head did not reveal any evidence of acute abnormality. It did reveal a chronic left subcortical stroke. LDL 1:15. Continue patient on atorvastatin 40, with goal of LDL less than 70. HbA1c 5.0 - Carotid ultrasound did not reveal any significant stenosis. - Continue aspirin - Entry monitoring while in-house. - PT, OT, and speech therapy consults. - DT prophylaxis: Recommend Lovenox. 2. Blood pressure: Recommend BP goal of normotension starting from tomorrow morning, it would be more than 48 hours since onset of symptoms. Will continue to follow patient. Az Summers MD Neurology
[2019-05-18] MEDS: ZESTRIL PO SCH (09:35)
[2019-05-18] MEDS: HCTZ PO SCH (09:35)
[2019-05-18] MEDS: ASPIRIN PO SCH (09:35)
[2019-05-18] MEDS: SODIUM CHLORIDE FLUSH SYRINGE 10 ML IV SCH ×2 (09:36→21:39)
[2019-05-18] MEDS ORDERED: ATIVAN IV NR ×2 (10:03→12:45)
--- NOTE | 2019-05-18 11:50 | Progress Note ---
Assessment and Plan Patient is a 38 y/o woman w/ a h/o HTN, obesity, who resents with right facial droop and mild right upper extremity weakness. According patient's clinical findings, it is possible that the patient has had an acute ischemic stroke. The likely etiology of this is uncontrolled hypertension, as patient had elevated blood pressure on admission, and has been noncompliant with antihypertensive medications for the past couple months. Plan: 1. Stroke: - MRI brain and MRA head pending. Echocardiogram: EF 55-60%, bubble study negative, left atrial normal size. - CT head did not reveal any evidence of acute abnormality. It did reveal a chr onic left subcortical stroke. LDL 115. Continue patient on atorvastatin 40, with goal of LDL less than 70. HbA1c 5.0 - Carotid ultrasound did not reveal any significant stenosis. - Continue aspirin - Telemetry monitoring while in-house. - PT, OT, and speech therapy consults. - DT prophylaxis: Recommend Lovenox. 2. Blood pressure: Recommend BP goal of normotension, as it has been more than 48 hours since onset of symptoms. Will continue to follow patient. Az Summers MD Neurology Subjective Date of service: 05/18/19 Principal diagnosis: Stroke Interval history: No acute events overnight. Objective - Vital Sign Vital Signs - 12hr 05/17/19 05/18/19 05/18/19 23:54 04:17 07:56 Temperature 98.3 F 98.6 F 97.9 F Pulse Rate 76 70 62 Respiratory 18 20 20 Rate Blood Pressure 168/92 168/80 175/98 O2 Sat by Pulse 97 99 100 Oximetry 05/18/19 05/18/19 09:35 11:30 Temperature 97.9 F Pulse Rate 62 76 Respiratory 18 Rate Blood Pressure 175/98 169/102 O2 Sat by Pulse 99 Oximetry - General Apperance Constitutional: comfortable - EENT EENT: ATNC, PERRL, mucous membranes moist, hearing intact, vision intact - Respiratory Respiratory: lungs clear, normal breath sounds - Cardiovascular Cardiovascular: regular rate, normal S1, normal S2 Extremities: no peripheral edema bilat, no clubbing, cyanosis - Gastrointestinal Gastrointestinal: normoactive bowel sounds, soft, non-tender - Integumentary Integumentary: normal - Neurologic Cranial nerve examination: PERRL, EOMI, VFF, V1/V2/V3 grossly intact, tongue midline, intact shoulder shrug, facial droop Speech examination: other (Mild dysarthria) Motor examination - right side: 4/5: biceps, triceps, wrist flexion, wrist extension, manager agency, 5/5: hip flexors, knee extensors, dorsiflexion, toe extension (EHL), plantarflexion Motor examination - left side: 5/5: biceps, triceps, wrist flexion, wrist extension, manager agency, hip flexors, knee extensors, dorsiflexion, toe extension (EHL), plantarflexion Detailed sensory examination: intact Reflex and gait examination: intact Reflexes: 2+: ankle, bicep, knee, tricep Cerebellar examination: other (b/l intact to FTN and HTS) - Musculoskeletal Musculoskeletal: no fluid collection, no pain - Psychiatric Psychiatric: mood/affect appropriate - Laboratory Findings CBC and BMP: 05/17/19 04:32 05/17/19 04:32 Abnormal Lab Findings: Abnormal Labs 05/16/19 05/16/19 05/16/19 05:23 05:35 05:35 Hgb 9.6 L Hct MCV 73 L MCH 23 L RDW 19.1 H [place] % (Auto) 7.9 H Glucose POC Glucose 107 H Total Creatine Kinase 162 H Salicylates Acetaminophen 05/16/19 05/16/19 05/17/19 05:35 05:35 04:32 Hgb 8.8 L Hct 28.6 L MCV 75 L MCH 23 L RDW 19.3 H [place] % (Auto) 9.2 H Glucose POC Glucose Total Creatine Kinase Salicylates < 0.3 L Acetaminophen < 5.0 L 05/17/19 04:32 Hgb Hct MCV MCH RDW [place] % (Auto) Glucose 102 H POC Glucose Total Creatine Kinase Salicylates Acetaminophen
--- NOTE | 2019-05-18 14:56 | Progress Note ---
Assessment and Plan Assessment and plan: Patient is a 38-year-old woman with a history of hypertension quit taking her medication about 2 months ago who presents to [facility] ED with lurred speech and right facial droop * CT of the head showed no acute intracranial hemorrhage or large territory stroke; there could be an age indeterminant left frontal white matter lacunar stroke. Facial asymmetry, Possible acute left frontal subcortical stroke likely due to uncontrolled hypertension: MRI pending Hypertensive urgency: antihypertensivesMedication noncompliance: counseling done History Interval history: Patient was seen and examined. Follow-up on current diagnosis facial droop. No overnight events reported to me. Patient denies any chest pain, shortness breath, nausea/vomiting or severe headaches. Imaging, nursing note, chart, labs and old chart reviewed. Discussed with patient. Hospitalist Physical - Physical exam Narrative exam: Gen: WDWN, NAD, Awake, Alert, Orientated HEENT: NCAT, EOMI, PERRL, OP Clear Neck: supple, no adenopathy, no thyromegaly, no JVD CVS/Heart: RRR, normal S1S2, pulses present bilaterally Chest/Lungs: CTA B, Symmetrical chest expansion, good air entry bilaterally GI/Abdomen: soft, NTND, good bowel sounds, no guarding or rebound /Bladder: no suprapubic tenderness, no CVA or paraspinal tenderness Extermity/Skin: no c/c/e, no obvious rash MSK: FROM x 4 Neuro: CN 2-12 grossly intact except facial asym, no new focal deficits, no drift Psych: calm - Constitutional Vitals: Temp Pulse Resp BP Pulse Ox 97.9 F 76 18 169/102 99 05/18/19 11:30 05/18/19 11:30 05/18/19 11:30 05/18/19 11:30 05/18/19 11:30 Results - Labs CBC & Chem 7: 05/17/19 04:32 05/17/19 04:32 Labs: Laboratory Last Values WBC 4.7 K/mm3 (4.5-11.0) 05/17/19 04:32 RBC 3.81 M/mm3 (3.65-5.03) 05/17/19 04:32 Hgb 8.8 gm/dl (10.1-14.3) L 05/17/19 04:32 Hct 28.6 % (30.3-42.9) L 05/17/19 04:32 MCV 75 fl (79-97) L 05/17/19 04:32 MCH 23 pg (28-32) L 05/17/19 04:32 MCHC 31 % (30-34) 05/17/19 04:32 RDW 19.3 % (13.2-15.2) H 05/17/19 04:32 Plt Count 290 K/mm3 (140-440) 05/17/19 04:32 Lymph % (Auto) 24.9 % (13.4-35.0) 05/17/19 04:32 [place] % (Auto) 9.2 % (0.0-7.3) H 05/17/19 04:32 Eos % (Auto) 2.9 % (0.0-4.3) 05/17/19 04:32 Baso % (Auto) 1.0 % (0.0-1.8) 05/17/19 04:32 Lymph # 1.2 K/mm3 (1.2-5.4) 05/17/19 04:32 [place] # 0.4 K/mm3 (0.0-0.8) 05/17/19 04:32 Eos # 0.1 K/mm3 (0.0-0.4) 05/17/19 04:32 Baso # 0.0 K/mm3 (0.0-0.1) 05/17/19 04:32 Seg Neutrophils % 62.0 % (40.0-70.0) 05/17/19 04:32 Seg Neutrophils # 2.9 K/mm3 (1.8-7.7) 05/17/19 04:32 PT 12.6 Sec. (12.2-14.9) 05/16/19 02:54 INR 0.97 (0.87-1.13) 05/16/19 02:54 APTT 28.2 Sec. (24.2-36.6) 05/16/19 02:54 15.6 Sec. (15.1-19.6) 05/16/19 02:54 Sodium 138 mmol/L (137-145) 05/17/19 04:32 Potassium 3.7 mmol/L (3.6-5.0) 05/17/19 04:32 Chloride 104.2 mmol/L (98-107) 05/17/19 04:32 Carbon Dioxide 22 mmol/L (22-30) 05/17/19 04:32 16 mmol/L 05/17/19 04:32 BUN 9 mg/dL (7-17) 05/17/19 04:32 0.7 mg/dL (0.7-1.2) 05/17/19 04:32 Estimated GFR > 60 ml/min 05/17/19 04:32 13 % 05/17/19 04:32 Glucose 102 mg/dL (65-100) H 05/17/19 04:32 POC Glucose 107 (70-105) H 05/16/19 05:23 5.0 % (4-6) 05/17/19 04:32 Calcium 8.7 mg/dL (8.4-10.2) 05/17/19 04:32 Magnesium 1.90 mg/dL (1.7-2.3) 05/16/19 05:35 162 units/L (30-135) H 05/16/19 05:35 CK-MB (CK-2) 1.4 ng/mL (0.0-4.0) 05/16/19 05:35 CK-MB (CK-2) Rel Index 0.8 (0-4) 05/16/19 05:35 < 0.010 ng/mL (0.00-0.029) 05/16/19 05:35 Triglycerides 47 mg/dL (2-149) 05/16/19 05:35 Cholesterol 156 mg/dL (50-199) 05/16/19 05:35 115 mg/dL (50-130) 05/16/19 05:35 52 mg/dL (40-59) 05/16/19 05:35 3.00 % 05/16/19 05:35 TSH 2.560 mlU/mL (0.270-4.200) 05/16/19 05:35 HCG, Quant < 2 mIU/mL (0-4) 05/16/19 05:35 Salicylates < 0.3 mg/dL (2.8-20.0) L 05/16/19 05:35 Presumptive negative 05/17/19 14:00 Presumptive negative 05/17/19 14:00 Acetaminophen < 5.0 ug/mL (10.0-30.0) L 05/16/19 05:35 Ur Barbiturates Screen Presumptive negative 05/17/19 14:00 Ur Phencyclidine Scrn Presumptive negative 05/17/19 14:00 Ur Amphetamines Screen Presumptive negative 05/17/19 14:00 U Benzodiazepines Scrn Presumptive negative 05/17/19 14:00 Presumptive negative 05/17/19 14:00 U Marijuana (THC) Screen Presumptive negative 05/17/19 14:00 Disclamer 05/17/19 14:00 Plasma/Serum Alcohol < 0.01 % (0-0.07) 05/16/19 05:35 Active Medications - Current Medications Current Medications: Generic Name Dose Route Start Last Admin Trade Name Freq PRN Reason Stop Dose Admin Acetaminophen 650 mg 05/16/19 07:35 05/16/19 19:20 Tylenol PO 650 mg Q4H PRN Administration Pain, Mild (1-3) Albuterol 2.5 mg 05/16/19 07:35 Proventil IH Q3HRT PRN Shortness Of Breath Aspirin 325 mg 05/17/19 10:00 05/18/19 09:35 Aspirin PO 325 mg QDAY LEXIE Administration Atorvastatin Calcium 40 mg 05/17/19 22:00 05/17/19 21:31 Lipitor PO 40 mg QHS LEXIE Administration Bisacodyl 10 mg 05/16/19 10:00 Dulcolax MI QDAY PRN Constipation Diazepam 10 mg 05/18/19 14:46 Valium PO 05/18/19 14:47 ONCE ONE Hydrochlorothiazide 25 mg 05/17/19 12:00 05/18/19 09:35 Hctz PO 25 mg QDAY LEXIE Administration Lisinopril 40 mg 05/17/19 12:00 05/18/19 09:35 Zestril PO 40 mg QDAY LEXIE Administration Magnesium Hydroxide 30 ml 05/16/19 07:35 Milk Of Magnesia PO Q4H PRN Constipation Metoclopramide HCl 10 mg 05/16/19 07:35 Reglan PO Q6H PRN Nausea And Vomiting Ondansetron HCl 4 mg 05/16/19 07:35 05/16/19 20:32 Zofran IV 4 mg Q8H PRN Administration Nausea And Vomiting Promethazine HCl 25 mg 05/16/19 07:35 Phenergan MI Q6H PRN Nausea And Vomiting Sodium Chloride 10 ml 05/16/19 10:00 05/18/19 09:36 Sodium Chloride Flush Syringe 10 Ml IV 10 ml BID LEXIE Administration Sodium Chloride 10 ml 05/16/19 07:35 Sodium Chloride Flush Syringe 10 Ml IV PRN PRN LINE FLUSH Nutrition/Malnutrition Assess - Dietary Evaluation Nutrition/Malnutrition Findings: Nutrition Notes Start: 05/17/19 11:38 Freq: Status: Active Protocol: Document 05/17/19 11:38 LM (Rec: 05/17/19 12:01 LM [id number]) 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 No adi score in chart. Pt stated she does not have an appetite. Pt stated she is numb on one side of her face and has swollen tongue. Pt stated she prefers full liquid diet. Burn Absent Trauma Absent Difficulty In Chewing #1 Nutrition Diagnosis Inadequate oral intake Etiology chewing difficulty due to facial numbness and swollwen tongue secondary to thrombatic stroke As Evidenced by Signs and Symptoms decreased appetite, pt eating less than 50% Is patient on ventilator? No Is Patient Ambulatory and/or Out of Bed No REE-([facility]-confined to bed) 2007.456 Kcal/Kg value to use for calculation 14 Approximate Energy Requirements Using 1464 kcal/Kg Calculation Used for Recommendations Kcal/kg Additional Notes Protein: 61-76g (0.8-1 g/kg adjBW 76.36 kg) Fluids: 1 ml/kcal Nutrition Intervention Change Diet Order: Full liquid diet Add Supplement/Snack (indicate name/kcal Ensure Enlive Vanilla once a /protein ) day Provides kCal: 350 Provides Protein (gm) 20 Goal #1 Meet at least 75% of energy and protein needs Anticipated Discharge Needs: Cardiac diet Follow-Up By: 05/19/19 Additional Comments F/U for PO/ONS intakes, diet advancement
[2019-05-18] MEDS ORDERED: VALIUM PO ONE (15:46)
[2019-05-18] MEDS: APRESOLINE IV PRN (23:00)
[2019-05-18] MEDS: ZOFRAN IV PRN (23:23)
[2019-05-19] MEDS ORDERED: ATIVAN IV NR (08:00)
[2019-05-19] MEDS: TYLENOL PO PRN (08:17)
[2019-05-19] MEDS: HCTZ PO SCH (10:30)
[2019-05-19] MEDS: ASPIRIN PO SCH (10:30)
[2019-05-19] MEDS: ZESTRIL PO SCH (10:30)
[2019-05-19] MEDS: SODIUM CHLORIDE FLUSH SYRINGE 10 ML IV SCH ×2 (10:31→21:38)
--- NOTE | 2019-05-19 13:21 | Magnetic Resonance Report ---
MRI BRAIN WITHOUT CONTRAST INDICATION / CLINICAL INFORMATION: stroke. TECHNIQUE: Multiplanar, multisequence MR images of the brain were obtained. COMPARISON: None available. FINDINGS: BRAIN / INTRACRANIAL CONTENTS: There is acute infarct involving the left thompson radiata measuring 1.8 cm in greatest transverse dimension. On the FLAIR of sequences, there is otherwise moderate cerebral white matter disease which is nonspecific though may reflect microvascular angiopathy given the abov e infarct. The findings are advanced for the patient's age. There is an older infarct involving the a nterior left periventricular region. The ventricular system is appropriate in size and configuration. No extra-axial fluid collections are identified. On the susceptibility weighted imaging, there are small hypointense foci projected along the left frontal lobe and posterior left thalamus which may be related to a chronic microhemorrhages . CRANIOCERVICAL JUNCTION: No significant abnormality. VASCULAR FLOW-VOIDS: On the axial T2-weighted sequence, there is a 1 cm focus of marked decreased sig nal projected along the ophthalmic region of the right ICA which may reflect a flow void an aneurysm. Alternatively, this may reflect asymmetric aeration of the sinuses. The MRA head will be dictated se parately. ORBITS: No significant abnormality of visualized orbits. SINUSES / MASTOIDS: No significant abnormality of the visualized paranasal sinuses or mastoid air bk ls. ADDITIONAL FINDINGS: None. IMPRESSION: 1. There is a 1.8 cm acute infarct involving the left thompson radiata. 2. There is otherwise a moderate chronic microvascular angiopathy as detailed above. 3. There are notable inflammatory changes within the right sphenoid sinus with near complete opacific ation. 4. There is suggestion of a flow void along the ophthalmic segment of the right ICA; the MR a head wi ll be dictated separately. Signer Name: Abhinav Sharma MD Signed: 05/19/2019 1:16 PM Workstation Name: [id number]
--- NOTE | 2019-05-19 13:26 | Magnetic Resonance Report ---
MRA head without contrast Clinical history: Cerebrovascular accident, slurred speech. FINDINGS: The motion significantly degrades image quality. However, the findings are compatible with an aneurysm projecting along the ophthalmic segment of the right ICA measuring 9-10 mm transversely a t. This finding is a directed superiorly. There is no further clear MRA evidence of intracranial aneu rysm. The extensive irregularity of the intracranial vessels appears to be related to the degree of motion artifact at. Is mild relative ectasia of the vertebral basilar system without focal narrowing. Furthe rmore, there is no clear MRA evidence of significant stenosis involving anterior circulation vessels at. There is medial deviation of the distal right ICA. IMPRESSION: The study is degraded by motion. 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 Signer Name: Abhinav Sharma MD Signed: 05/19/2019 1:22 PM Workstation Name: [id number]
--- NOTE | 2019-05-19 16:06 | Progress Note ---
Assessment and Plan Assessment and plan: Patient is a 38-year-old woman with a history of hypertension quit taking her medication about 2 months ago who presents to [facility] ED with slurred speech and right facial droop. The CT head was negative, MRI ordered but unable to do because she is claustrophobic and lost IV access so IV ativan unable to be given. Overnight, IV line was placed and today Iv ativan given and MRI/MRA was successfully done. The MRA brain showed large 10mm aneurysm. * CT of the head showed no acute intracranial hemorrhage or large territory stroke; there could be an age indeterminant left frontal white matter lacunar stroke. * MRI brain without contrast IMPRESSION: 1. There is a 1.8 cm acute infarct involving the left thompson radiata. 2. There is otherwise a moderate chronic microvascular angiopathy as detailed above. 3. There are notable inflammatory changes within the right sphenoid sinus with near complete opacification. 4. There is suggestion of a flow void along the ophthalmic segment of the right ICA; the MR a head will be dictated separately. * MRA brain without contrast IMPRESSION: The study is degraded by motion. 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 Acute ischemic stroke: treat with ASA and statin Large Brain Aneurysm: d/w Neurologist, will need to be referred to tertiary center non-emergency but will confer with NSY Malignant Hypertension with urgency: counseling done I called [facility] [phone] and spoke with Shama @ [phone] await NSY called back (which we do not have) History Interval history: Patient was seen and examined. Follow-up on current diagnosis CVA. No overnight events reported to me. Patient denies any chest pain, shortness breath, nausea/vomiting or severe headaches. Imaging, nursing note, chart, labs and old chart reviewed. Discussed with patient. Hospitalist Physical - Physical exam Narrative exam: Gen: WDWN, NAD, Awake, Alert, Orientated HEENT: NCAT, EOMI, PERRL, OP Clear Neck: supple, no adenopathy, no thyromegaly, no JVD CVS/Heart: RRR, normal S1S2, pulses present bilaterally Chest/Lungs: CTA B, Symmetrical chest expansion, good air entry bilaterally GI/Abdomen: soft, NTND, good bowel sounds, no guarding or rebound /Bladder: no suprapubic tenderness, no CVA or paraspinal tenderness Extermity/Skin: no c/c/e, no obvious rash MSK: FROM x 4 Neuro: CN 2-12 grossly intact except facial asym, no new focal deficits, no drift Psych: calm - Constitutional Vitals: Temp Pulse Resp BP Pulse Ox 98.2 F 86 18 162/92 98 05/19/19 08:26 05/19/19 10:30 05/19/19 10:00 05/19/19 10:30 05/19/19 10:00 Results - Labs CBC & Chem 7: 05/17/19 04:32 05/17/19 04:32 Labs: Laboratory Last Values WBC 4.7 K/mm3 (4.5-11.0) 05/17/19 04:32 RBC 3.81 M/mm3 (3.65-5.03) 05/17/19 04:32 Hgb 8.8 gm/dl (10.1-14.3) L 05/17/19 04:32 Hct 28.6 % (30.3-42.9) L 05/17/19 04:32 MCV 75 fl (79-97) L 05/17/19 04:32 MCH 23 pg (28-32) L 05/17/19 04:32 MCHC 31 % (30-34) 05/17/19 04:32 RDW 19.3 % (13.2-15.2) H 05/17/19 04:32 Plt Count 290 K/mm3 (140-440) 05/17/19 04:32 Lymph % (Auto) 24.9 % (13.4-35.0) 05/17/19 04:32 [place] % (Auto) 9.2 % (0.0-7.3) H 05/17/19 04:32 Eos % (Auto) 2.9 % (0.0-4.3) 05/17/19 04:32 Baso % (Auto) 1.0 % (0.0-1.8) 05/17/19 04:32 Lymph # 1.2 K/mm3 (1.2-5.4) 05/17/19 04:32 [place] # 0.4 K/mm3 (0.0-0.8) 05/17/19 04:32 Eos # 0.1 K/mm3 (0.0-0.4) 05/17/19 04:32 Baso # 0.0 K/mm3 (0.0-0.1) 05/17/19 04:32 Seg Neutrophils % 62.0 % (40.0-70.0) 05/17/19 04:32 Seg Neutrophils # 2.9 K/mm3 (1.8-7.7) 05/17/19 04:32 PT 12.6 Sec. (12.2-14.9) 05/16/19 02:54 INR 0.97 (0.87-1.13) 05/16/19 02:54 APTT 28.2 Sec. (24.2-36.6) 05/16/19 02:54 15.6 Sec. (15.1-19.6) 05/16/19 02:54 Sodium 138 mmol/L (137-145) 05/17/19 04:32 Potassium 3.7 mmol/L (3.6-5.0) 05/17/19 04:32 Chloride 104.2 mmol/L (98-107) 05/17/19 04:32 Carbon Dioxide 22 mmol/L (22-30) 05/17/19 04:32 16 mmol/L 05/17/19 04:32 BUN 9 mg/dL (7-17) 05/17/19 04:32 0.7 mg/dL (0.7-1.2) 05/17/19 04:32 Estimated GFR > 60 ml/min 05/17/19 04:32 13 % 05/17/19 04:32 Glucose 102 mg/dL (65-100) H 05/17/19 04:32 POC Glucose 107 (70-105) H 05/16/19 05:23 5.0 % (4-6) 05/17/19 04:32 Calcium 8.7 mg/dL (8.4-10.2) 05/17/19 04:32 Magnesium 1.90 mg/dL (1.7-2.3) 05/16/19 05:35 162 units/L (30-135) H 05/16/19 05:35 CK-MB (CK-2) 1.4 ng/mL (0.0-4.0) 05/16/19 05:35 CK-MB (CK-2) Rel Index 0.8 (0-4) 05/16/19 05:35 < 0.010 ng/mL (0.00-0.029) 05/16/19 05:35 Triglycerides 47 mg/dL (2-149) 05/16/19 05:35 Cholesterol 156 mg/dL (50-199) 05/16/19 05:35 115 mg/dL (50-130) 05/16/19 05:35 52 mg/dL (40-59) 05/16/19 05:35 3.00 % 05/16/19 05:35 TSH 2.560 mlU/mL (0.270-4.200) 05/16/19 05:35 HCG, Quant < 2 mIU/mL (0-4) 05/16/19 05:35 Salicylates < 0.3 mg/dL (2.8-20.0) L 05/16/19 05:35 Presumptive negative 05/17/19 14:00 Presumptive negative 05/17/19 14:00 Acetaminophen < 5.0 ug/mL (10.0-30.0) L 05/16/19 05:35 Ur Barbiturates Screen Presumptive negative 05/17/19 14:00 Ur Phencyclidine Scrn Presumptive negative 05/17/19 14:00 Ur Amphetamines Screen Presumptive negative 05/17/19 14:00 U Benzodiazepines Scrn Presumptive negative 05/17/19 14:00 Presumptive negative 05/17/19 14:00 U Marijuana (THC) Screen Presumptive negative 05/17/19 14:00 Disclamer 05/17/19 14:00 Plasma/Serum Alcohol < 0.01 % (0-0.07) 05/16/19 05:35 Active Medications - Current Medications Current Medications: Generic Name Dose Route Start Last Admin Trade Name Freq PRN Reason Stop Dose Admin Acetaminophen 650 mg 05/16/19 07:35 05/19/19 08:17 Tylenol PO 650 mg Q4H PRN Administration Pain, Mild (1-3) Albuterol 2.5 mg 05/16/19 07:35 Proventil IH Q3HRT PRN Shortness Of Breath Aspirin 325 mg 05/17/19 10:00 05/19/19 10:30 Aspirin PO 325 mg QDAY LEXIE Administration Atorvastatin Calcium 40 mg 05/17/19 22:00 05/18/19 21:39 Lipitor PO 40 mg QHS LEXIE Administration Bisacodyl 10 mg 05/16/19 10:00 Dulcolax MA QDAY PRN Constipation Hydralazine HCl 10 mg 05/18/19 22:31 05/18/19 23:00 Apresoline IV 10 mg Q4H PRN Administration Blood Pressure Hydrochlorothiazide 25 mg 05/17/19 12:00 05/19/19 10:30 Hctz PO 25 mg QDAY LEXIE Administration Lisinopril 40 mg 05/17/19 12:00 05/19/19 10:30 Zestril PO 40 mg QDAY LEXIE Administration Magnesium Hydroxide 30 ml 05/16/19 07:35 05/19/19 07:24 Milk Of Magnesia PO 30 ml Q4H PRN Administration Constipation Metoclopramide HCl 10 mg 05/16/19 07:35 Reglan PO Q6H PRN Nausea And Vomiting Ondansetron HCl 4 mg 05/16/19 07:35 05/18/19 23:23 Zofran IV 4 mg Q8H PRN Administration Nausea And Vomiting Promethazine HCl 25 mg 05/16/19 07:35 Phenergan MA Q6H PRN Nausea And Vomiting Sodium Chloride 10 ml 05/16/19 10:00 05/19/19 10:31 Sodium Chloride Flush Syringe 10 Ml IV 10 ml BID LEXIE Administration Sodium Chloride 10 ml 05/16/19 07:35 Sodium Chloride Flush Syringe 10 Ml IV PRN PRN LINE FLUSH Nutrition/Malnutrition Assess - Dietary Evaluation Nutrition/Malnutrition Findings: Nutrition Notes Start: 05/17/19 11:38 Freq: Status: Active Protocol: Document 05/19/19 13:57 RM (Rec: 05/19/19 14:05 [id number]) Nutrition Notes Initial or Follow up Reassessment Current Diagnosis Hypertension Other Pertinent Diagnosis Thrombatic stroke Current Diet Cardiac Labs/Tests Reviewed Pertinent Medications Zofran, Hydrochlorothiazide Height 5 ft 1.2 in Weight 102.2 kg [place] Body Weight (kg) 48.18 BMI 42.3 Subjective/Other Information Diet changed from full liquid w/Ensure Enlive to cardiac. Ensure Enlive was not carried over. Pt and pt sister in room at time of visit. Pt asleep. Pt sister stated that pt ate a veggie pizza and some of her breakfast yesterday but did not eat breakfast today. Noted breakfast at bedside w/none eaten. Stated pt also drank an Ensure Enlive. Burn Absent Trauma Absent #1 Nutrition Diagnosis Inadequate oral intake Diagnosis Progress(for reassessment Continues documentation) Is patient on ventilator? No Is Patient Ambulatory and/or Out of Bed No [facility] 1978.400 Kcal/Kg value to use for calculation 14 Approximate Energy Requirements Using 1431 kcal/Kg Calculation Used for Recommendations Kcal/kg Additional Notes Protein: 61-76g (0.8-1 g/kg adjBW 76.36 kg) Fluids: 1 ml/kcal Nutrition Intervention Change Diet Order: Continue current Add Supplement/Snack (indicate name/kcal Reorder Ensure Enlive Vanilla /protein ) once a day Provides kCal: 350 Provides Protein (gm) 20 Goal #1 Meet at least 75% of energy and protein needs Anticipated Discharge Needs: Cardiac diet Follow-Up By: 05/21/19 Additional Comments Follow for PO and ONS intakes
--- NOTE | 2019-05-19 19:42 | Progress Note ---
Assessment and Plan Patient is a 38 y/o woman w/ a h/o HTN, obesity, who resents with right facial droop and mild right upper extremity weakness. According patient's clinical findings, the patient has had an acute ischemic stroke. The likely etiology of this is uncontrolled hypertension, as patient had elevated blood pressure on admission, and has been noncompliant with antihypertensive medications for the past couple months. Plan: 1. Stroke: - MRI brain revealed left thompson radiata acute infarct, which appears to be lacunar. 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 Echocardiogram: EF 55-60%, bubble study negative, left atrial normal size. - CT head did not reveal any evidence of acute abnormality. It did reveal a chronic left subcortical stroke. LDL 115. Continue patient on atorvastatin 40, with goal of LDL less than 70. HbA1c 5.0 - Carotid ultrasound did not reveal any significant stenosis. - Continue aspirin - Telemetry monitoring while in-house. - PT, OT, and speech therapy consults. - DT prophylaxis: Recommend Lovenox. 2. Blood pressure: Recommend BP goal of normotension, as it has been more than 48 hours since onset of symptoms. 3. Rt. ICA- jorge-ophthalmic aneurysm: - Discussed etiology and prognosis with patient - Referred patient to [place] [facility], and provided patient with contact info for the clinic, as patient will require further management with either coiling or clip. This was discussed with the patient, and she agreed to follow up in [place] stroke clinic for further management. - Will sign off. Please call with any questions. Az Summers MD Neurology Subjective Date of service: 05/19/19 Principal diagnosis: Stroke Interval history: No acute events overnight. Objective - Vital Sign Vital Signs - 12hr 05/19/19 05/19/19 05/19/19 08:26 08:48 10:00 Temperature 98.2 F Pulse Rate 86 84 Pulse Rate [ 86 Apical] Pulse Rate [ 86 Radial] Respiratory 18 18 Rate Blood Pressure 162/92 O2 Sat by Pulse 98 100 98 Oximetry 05/19/19 05/19/19 10:30 16:19 Temperature 98.3 F Pulse Rate 86 75 Pulse Rate [ Apical] Pulse Rate [ Radial] Respiratory 20 Rate Blood Pressure 162/92 153/85 O2 Sat by Pulse 98 Oximetry - General Apperance Constitutional: comfortable - EENT EENT: ATNC, PERRL, mucous membranes moist, hearing intact, vision intact - Respiratory Respiratory: lungs clear, normal breath sounds - Cardiovascular Cardiovascular: regular rate, normal S1, normal S2 Extremities: no peripheral edema bilat, no clubbing, cyanosis - Gastrointestinal Gastrointestinal: normoactive bowel sounds, soft, non-tender - Integumentary Integumentary: normal - Neurologic Cranial nerve examination: PERRL, EOMI, VFF, V1/V2/V3 grossly intact, tongue m idline, facial droop Speech examination: other (dysarthria noted) Motor examination - right side: 4/5: biceps, triceps, wrist flexion, wrist extension, research home economist, 5/5: hip flexors, knee extensors, dorsiflexion, toe extension (EHL), plantarflexion Motor examination - left side: 5/5: biceps, triceps, wrist flexion, wrist extension, research home economist, hip flexors, knee extensors, dorsiflexion, toe extension (EHL), plantarflexion Detailed sensory examination: intact, light touch Reflex and gait examination: normal gait Reflexes: 2+: ankle, bicep, knee, tricep Cerebellar examination: other (b/l intact to FTN and HTS) - Musculoskeletal Musculoskeletal: no fluid collection, no pain - Psychiatric Psychiatric: mood/affect appropriate - Laboratory Findings CBC and BMP: 05/17/19 04:32 05/17/19 04:32 Abnormal Lab Findings: Abnormal Labs 05/16/19 05/16/19 05/16/19 05:23 05:35 05:35 Hgb 9.6 L Hct MCV 73 L MCH 23 L RDW 19.1 H [place] % (Auto) 7.9 H Glucose POC Glucose 107 H Total Creatine Kinase 162 H Salicylates Acetaminophen 05/16/19 05/16/19 05/17/19 05:35 05:35 04:32 Hgb 8.8 L Hct 28.6 L MCV 75 L MCH 23 L RDW 19.3 H [place] % (Auto) 9.2 H Glucose POC Glucose Total Creatine Kinase Salicylates < 0.3 L Acetaminophen < 5.0 L 05/17/19 04:32 Hgb Hct MCV MCH RDW [place] % (Auto) Glucose 102 H POC Glucose Total Creatine Kinase Salicylates Acetaminophen
[2019-05-20] MEDS: ASPIRIN PO SCH (09:28)
[2019-05-20] MEDS: HCTZ PO SCH (09:28)
[2019-05-20] MEDS: ZESTRIL PO SCH (09:28)
[2019-05-20] MEDS: SODIUM CHLORIDE FLUSH SYRINGE 10 ML IV SCH ×2 (09:29→21:29)
[2019-05-20] MEDS ORDERED: NORVASC PO SCH ×2 (11:00→12:00)
[2019-05-20] MEDS: LOPRESSOR PO SCH ×2 (12:20→21:29)
[2019-05-20] MEDS: APRESOLINE IV PRN (14:09)
--- NOTE | 2019-05-20 14:31 | Progress Note ---
Assessment and Plan Assessment and plan: Patient is a 38-year-old woman with a history of hypertension quit taking her medication about 2 months ago who presents to [facility] ED with slurred speech and right facial droop. The CT head was negative, MRI ordered but unable to do because she is claustrophobic and lost IV access so IV ativan unable to be given. Overnight, IV line was placed and today Iv ativan given and MRI/MRA was successfully done. The MRA brain showed large 9-10 mm aneurysm. * CT of the head showed no acute intracranial hemorrhage or large territory stroke; there could be an age indeterminant left frontal white matter lacunar stroke. * MRI brain without contrast IMPRESSION: 1. There is a 1.8 cm acute infarct involving the left thompson radiata. 2. There is otherwise a moderate chronic microvascular angiopathy as detailed above. 3. There are notable inflammatory changes within the right sphenoid sinus with near complete opacification. 4. There is suggestion of a flow void along the ophthalmic segment of the right ICA; the MR a head will be dictated separately. * MRA brain without contrast IMPRESSION: The study is degraded by motion. 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 Acute ischemic stroke: treat with ASA and statin Large Brain Aneurysm: d/w Neurologist, will need to be referred to tertiary center non-emergency but will confer with NSY Malignant Hypertension with urgency: counseling done, IV hydralazine prn Microcytic anemia, most likely chronic: following cbc closely I called [place] transfer center [phone] and spoke with Shama @ [phone] await NSY called back (which we do not have)===>I spoke with Dr. Osborn and he recommends outpatient follow up with Dr. Abhinav Johnson at [place] for intervention. I notified patient, Neurologist and case management. We have scheduled an appointment with Dr. Johnson on May 27 at 2pm. Disposition: continue inpatient care until bp is controlled. Added norvasc and metoprolol to the lisinopril 40mg/d and HCTZ 25mg/d. Patient anxious to go home. History Interval history: Patient was seen and examined. Follow-up on current diagnosis CVA. No overnight events reported to me. Patient denies any chest pain, shortness breath, nausea/vomiting or severe headaches. Imaging, nursing note, chart, labs and old chart reviewed. Discussed with patient. Hospitalist Physical - Physical exam Narrative exam: Gen: WDWN, NAD, Awake, Alert, Orientated HEENT: NCAT, EOMI, PERRL, OP Clear Neck: supple, no adenopathy, no thyromegaly, no JVD CVS/Heart: RRR, normal S1S2, pulses present bilaterally Chest/Lungs: CTA B, Symmetrical chest expansion, good air entry bilaterally GI/Abdomen: soft, NTND, good bowel sounds, no guarding or rebound /Bladder: no suprapubic tenderness, no CVA or paraspinal tenderness Extermity/Skin: no c/c/e, no obvious rash MSK: FROM x 4 Neuro: CN 2-12 grossly intact except facial asym, no new focal deficits, no drift Psych: calm - Constitutional Vitals: Temp Pulse Resp BP Pulse Ox 97.6 F 68 18 204/111 97 05/20/19 08:40 05/20/19 14:09 05/20/19 10:00 05/20/19 14:09 05/20/19 10:00 Results - Labs CBC & Chem 7: 05/17/19 04:32 05/17/19 04:32 Labs: Laboratory Last Values WBC 4.7 K/mm3 (4.5-11.0) 05/17/19 04:32 RBC 3.81 M/mm3 (3.65-5.03) 05/17/19 04:32 Hgb 8.8 gm/dl (10.1-14.3) L 05/17/19 04:32 Hct 28.6 % (30.3-42.9) L 05/17/19 04:32 MCV 75 fl (79-97) L 05/17/19 04:32 MCH 23 pg (28-32) L 05/17/19 04:32 MCHC 31 % (30-34) 05/17/19 04:32 RDW 19.3 % (13.2-15.2) H 05/17/19 04:32 Plt Count 290 K/mm3 (140-440) 05/17/19 04:32 Lymph % (Auto) 24.9 % (13.4-35.0) 05/17/19 04:32 [place] % (Auto) 9.2 % (0.0-7.3) H 05/17/19 04:32 Eos % (Auto) 2.9 % (0.0-4.3) 05/17/19 04:32 Baso % (Auto) 1.0 % (0.0-1.8) 05/17/19 04:32 Lymph # 1.2 K/mm3 (1.2-5.4) 05/17/19 04:32 [place] # 0.4 K/mm3 (0.0-0.8) 05/17/19 04:32 Eos # 0.1 K/mm3 (0.0-0.4) 05/17/19 04:32 Baso # 0.0 K/mm3 (0.0-0.1) 05/17/19 04:32 Seg Neutrophils % 62.0 % (40.0-70.0) 05/17/19 04:32 Seg Neutrophils # 2.9 K/mm3 (1.8-7.7) 05/17/19 04:32 PT 12.6 Sec. (12.2-14.9) 05/16/19 02:54 INR 0.97 (0.87-1.13) 05/16/19 02:54 APTT 28.2 Sec. (24.2-36.6) 05/16/19 02:54 15.6 Sec. (15.1-19.6) 05/16/19 02:54 Sodium 138 mmol/L (137-145) 05/17/19 04:32 Potassium 3.7 mmol/L (3.6-5.0) 05/17/19 04:32 Chloride 104.2 mmol/L (98-107) 05/17/19 04:32 Carbon Dioxide 22 mmol/L (22-30) 05/17/19 04:32 16 mmol/L 05/17/19 04:32 BUN 9 mg/dL (7-17) 05/17/19 04:32 0.7 mg/dL (0.7-1.2) 05/17/19 04:32 Estimated GFR > 60 ml/min 05/17/19 04:32 13 % 05/17/19 04:32 Glucose 102 mg/dL (65-100) H 05/17/19 04:32 POC Glucose 107 (70-105) H 05/16/19 05:23 5.0 % (4-6) 05/17/19 04:32 Calcium 8.7 mg/dL (8.4-10.2) 05/17/19 04:32 Magnesium 1.90 mg/dL (1.7-2.3) 05/16/19 05:35 162 units/L (30-135) H 05/16/19 05:35 CK-MB (CK-2) 1.4 ng/mL (0.0-4.0) 05/16/19 05:35 CK-MB (CK-2) Rel Index 0.8 (0-4) 05/16/19 05:35 < 0.010 ng/mL (0.00-0.029) 05/16/19 05:35 Triglycerides 47 mg/dL (2-149) 05/16/19 05:35 Cholesterol 156 mg/dL (50-199) 05/16/19 05:35 115 mg/dL (50-130) 05/16/19 05:35 52 mg/dL (40-59) 05/16/19 05:35 3.00 % 05/16/19 05:35 TSH 2.560 mlU/mL (0.270-4.200) 05/16/19 05:35 HCG, Quant < 2 mIU/mL (0-4) 05/16/19 05:35 Salicylates < 0.3 mg/dL (2.8-20.0) L 05/16/19 05:35 Presumptive negative 05/17/19 14:00 Presumptive negative 05/17/19 14:00 Acetaminophen < 5.0 ug/mL (10.0-30.0) L 05/16/19 05:35 Ur Barbiturates Screen Presumptive negative 05/17/19 14:00 Ur Phencyclidine Scrn Presumptive negative 05/17/19 14:00 Ur Amphetamines Screen Presumptive negative 05/17/19 14:00 U Benzodiazepines Scrn Presumptive negative 05/17/19 14:00 Presumptive negative 05/17/19 14:00 U Marijuana (THC) Screen Presumptive negative 05/17/19 14:00 Disclamer 05/17/19 14:00 Plasma/Serum Alcohol < 0.01 % (0-0.07) 05/16/19 05:35 Active Medications - Current Medications Current Medications: Generic Name Dose Route Start Last Admin Trade Name Freq PRN Reason Stop Dose Admin Acetaminophen 650 mg 05/16/19 07:35 05/19/19 08:17 Tylenol PO 650 mg Q4H PRN Administration Pain, Mild (1-3) Albuterol 2.5 mg 05/16/19 07:35 Proventil IH Q3HRT PRN Shortness Of Breath Amlodipine Besylate 5 mg 05/20/19 12:00 05/20/19 12:19 Norvasc PO 5 mg QDAY LEXIE Administration Aspirin 325 mg 05/17/19 10:00 05/20/19 09:28 Aspirin PO 325 mg QDAY LEXIE Administration Atorvastatin Calcium 40 mg 05/17/19 22:00 05/19/19 21:38 Lipitor PO 40 mg QHS LEXIE Administration Bisacodyl 10 mg 05/16/19 10:00 Dulcolax AK QDAY PRN Constipation Hydralazine HCl 10 mg 05/18/19 22:31 05/20/19 14:09 Apresoline IV 10 mg Q4H PRN Administration Blood Pressure Hydrochlorothiazide 25 mg 05/17/19 12:00 05/20/19 09:28 Hctz PO 25 mg QDAY LEXIE Administration Lisinopril 40 mg 05/17/19 12:00 05/20/19 09:28 Zestril PO 40 mg QDAY LEXIE Administration Magnesium Hydroxide 30 ml 05/16/19 07:35 05/19/19 07:24 Milk Of Magnesia PO 30 ml Q4H PRN Administration Constipation Metoclopramide HCl 10 mg 05/16/19 07:35 Reglan PO Q6H PRN Nausea And Vomiting Metoprolol Tartrate 25 mg 05/20/19 11:00 05/20/19 12:20 Lopressor PO 25 mg BID LEXIE Administration Ondansetron HCl 4 mg 05/16/19 07:35 05/18/19 23:23 Zofran IV 4 mg Q8H PRN Administration Nausea And Vomiting Promethazine HCl 25 mg 05/16/19 07:35 Phenergan AK Q6H PRN Nausea And Vomiting Sodium Chloride 10 ml 05/16/19 10:00 05/20/19 09:29 Sodium Chloride Flush Syringe 10 Ml IV 10 ml BID LEXIE Administration Sodium Chloride 10 ml 05/16/19 07:35 Sodium Chloride Flush Syringe 10 Ml IV PRN PRN LINE FLUSH Nutrition/Malnutrition Assess - Dietary Evaluation Nutrition/Malnutrition Findings: Nutrition Notes Start: 05/17/19 11:38 Freq: Status: Active Protocol: Document 05/19/19 13:57 RM (Rec: 05/19/19 14:05 RM [id number]) Nutrition Notes Initial or Follow up Reassessment Current Diagnosis Hypertension Other Pertinent Diagnosis Thrombatic stroke Current Diet Cardiac Labs/Tests Reviewed Pertinent Medications Zofran, Hydrochlorothiazide Height 5 ft 1.2 in Weight 102.2 kg [place] Body Weight (kg) 48.18 BMI 42.3 Subjective/Other Information Diet changed from full liquid w/Ensure Enlive to cardiac. Ensure Enlive was not carried over. Pt and pt sister in room at time of visit. Pt asleep. Pt sister stated that pt ate a veggie pizza and some of her breakfast yesterday but did not eat breakfast today. Noted breakfast at bedside w/none eaten. Stated pt also drank an Ensure Enlive. Burn Absent Trauma Absent #1 Nutrition Diagnosis Inadequate oral intake Diagnosis Progress(for reassessment Continues documentation) Is patient on ventilator? No Is Patient Ambulatory and/or Out of Bed No [facility]EE[facility]) 1979.400 Kcal/Kg value to use for calculation 14 Approximate Energy Requirements Using 1431 kcal/Kg Calculation Used for Recommendations Kcal/kg Additional Notes Protein: 61-76g (0.8-1 g/kg adjBW 76.36 kg) Fluids: 1 ml/kcal Nutrition Intervention Change Diet Order: Continue current Add Supplement/Snack (indicate name/kcal Reorder Ensure Enlive Vanilla /protein ) once a day Provides kCal: 350 Provides Protein (gm) 20 Goal #1 Meet at least 75% of energy and protein needs Anticipated Discharge Needs: Cardiac diet Follow-Up By: 05/21/19 Additional Comments Follow for PO and ONS intakes
[2019-05-20] MEDS: NORVASC PO ONE ×2 (15:00)
[2019-05-20] MEDS: APRESOLINE PO SCH (21:29)
[2019-05-21] MEDS: APRESOLINE PO SCH (05:38)
--- NOTE | 2019-05-21 09:00 | Discharge Summary ---
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 Therapy Evaluate and Treat [CONS] Routine Comment: Reason For Exam: Neuro deficits Physical Therapy Evaluation and Treat [CONS] Routine Comment: Reason For Exam: Neuro deficits 05/16/19 10:47 Speech Therapy Evaluation and Treat [CONS] Routine Reason For Exam: cva 05/17/19 13:05 Consult to Physician [CONS] Routine Comment: Consulting Provider: MARICARMEN FUENTES Physician Instructions: Reason For Exam: cva Primary care physician: SPONGE MAKER Hospitalization Condition: Stable Hospital course: Patient is a 38-year-old right handed woman with a history of hypertension quit taking her medication about 2 months ago who presents to [facility] ED with slurred speech and right facial droop. The CT head was negative, MRI ordered but unable to do because she is claustrophobic and lost IV access so IV ativan unable to be given. Overnight, IV line was placed and today Iv ativan given and MRI/MRA was successfully done. The MRA brain showed large 9-10 mm aneurysm. I called [place] transfer center and spoke with Dr. Osborn, who recommended out patient follow up with Dr. Abhinav Johnson at [place] for intervention. I notified patient, who voiced agreement and understanding. We have scheduled an appointment with Dr. Johnson on May 27 at 2pm (case management Izabela gave her the address/info) at [facility]rological clinic. 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 Did not discharge yesterday as BP was 204/111 and 197/115 but was disappointed because she was asymptomatic. I added more antihypertensives medication and now BP is steady. Patient is adamant about going home today. * CT of the head showed no acute intracranial hemorrhage or large territory stroke; there could be an age indeterminant left frontal white matter lacunar stroke. * MRI brain without contrast IMPRESSION: 1. There is a 1.8 cm acute infarct involving the left thompson radiata. 2. There is otherwise a moderate chronic microvascular angiopathy as detailed above. 3. There are notable inflammatory changes within the right sphenoid sinus with near complete opacification. 4. There is suggestion of a flow void along the ophthalmic segment of the right ICA; the MR a head will be dictated separately. * MRA brain without contrast IMPRESSION: The study is degraded by motion. 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 Acute ischemic stroke with residual Right side weakness, facial droop and mild dysarthria: treat with ASA and statin Large Brain Aneurysm: d/w Neurologist, will need to be referred to tertiary center non-emergency but will confer with NSY Malignant Hypertension with urgency: counseling done, IV hydralazine prn Microcytic anemia, most likely chronic: following cbc closely On norvasc 10m/d, metoprolol 25mg bid, lisinopril 40mg/d, HCTZ 25mg/d and HCTZ 25mg TID Disposition: DC-01 TO HOME OR SELFCARE Time spent for discharge: 35 minutes Core Measure Documentation - Palliative Care Palliative Care/ Comfort Measures: Not Applicable - Core Measures Any of the following diagnoses?: stroke - VTE Discharge Requirements Deep Vein Thrombosis/Pulmonary Embolism Present on Admission: No Has pt received <5 days of overlap therapy or INR<2.0: No Anticoagulant overlap therapy prescribed at discharge: No Contraindication No Overlap Therapy order at DC: Not Indicated - Stroke Discharge Requirements Statin for LDL = or >70 mg/dl on DC: Yes Anticoag for atrial fib/atrial flutter: No Reason for no anticoag for AF/F on DC: Not Indicated Antithrombotic for ischemic stroke: Yes Exam - Physical Exam Narrative exam: Gen: WDWN, NAD, Awake, Alert, Orientated HEENT: NCAT, EOMI, PERRL, OP Clear Neck: supple, no adenopathy, no thyromegaly, no JVD CVS/Heart: RRR, normal S1S2, pulses present bilaterally Chest/Lungs: CTA B, Symmetrical chest expansion, good air entry bilaterally GI/Abdomen: soft, NTND, good bowel sounds, no guarding or rebound /Bladder: no suprapubic tenderness, no CVA or paraspinal tenderness Extermity/Skin: no c/c/e, no obvious rash MSK: FROM x 4 Neuro: CN 2-12 grossly intact except facial asym, no new focal deficits, no drift, right side / Psych: calm - Constitutional Vitals: Temp Pulse Resp BP Pulse Ox 98.0 F 78 18 153/78 98 05/21/19 04:14 05/21/19 05:38 05/21/19 04:14 05/21/19 05:38 05/21/19 04:14 Plan Activity: no driving until cleared by PCP, other (no strenous activity until cleared by Neurology) Diet: low salt Additional Instructions: 1) See Dr. Abhinav Johnson May 27, 2019 at 2pm. 2) See Cardiology for possible 30 day event monitor/Holter monitor and monitor BP Follow up with: GALINA NAVA MD [Staff Physician] - 7 Days VAHE WEBSTER MD [Staff Physician] - 7 Days KHANH VANG MD [Staff Physician] - 7 Days Prescriptions: AtorvaSTATin [Lipitor] 40 mg PO QHS #30 tablet hydrALAZINE [Apresoline TAB] 25 mg PO Q8HR #90 tablet Aspirin 325 mg PO QDAY #30 tablet hydroCHLOROthiazide [HCTZ] 25 mg PO QDAY #30 tablet Metoprolol [Lopressor TAB] 25 mg PO BID #60 tablet amLODIPine [Norvasc] 10 mg PO QDAY #30 tablet Lisinopril [Zestril TAB] 40 mg PO QDAY #30 tablet
[2019-05-21 09:17] VITALS: BP 157/92
[2019-05-21] MEDS ORDERED: NORVASC PO SCH (10:00)
[2019-05-21] MEDS: ASPIRIN PO SCH (10:06)
[2019-05-21] MEDS: HCTZ PO SCH (10:06)
[2019-05-21] MEDS: ZESTRIL PO SCH (10:07)
[2019-05-21] MEDS: LOPRESSOR PO SCH (10:07)
[2019-05-21] MEDS: SODIUM CHLORIDE FLUSH SYRINGE 10 ML IV SCH (10:08)
== END 2019-05-21 12:46 | disposition home or self-care (01) | DRG 65 ==
LOC: ED 05:09 → IMCU 07:24 → 4A 05-17 14:30
PROVIDERS: ADMIT Internal Medicine; ATTEND Internal Medicine
DX: I63.312 Cerebral infarction due to thrombosis of left middle cerebral artery (principal); G81.91 Hemiplegia, unspecified affecting right dominant side; Z68.41 Body mass index [BMI] 40.0-44.9, adult; I16.1 Hypertensive emergency; I10 Essential (primary) hypertension; R47.81 Slurred speech; R29.810 Facial weakness; F40.240 Claustrophobia; R47.1 Dysarthria and anarthria; E66.9 Obesity, unspecified; I67.1 Cerebral aneurysm, nonruptured; D50.9 Iron deficiency anemia, unspecified; Z91.14 Patient's other noncompliance with medication regimen; Z71.89 Other specified counseling; Z79.899 Other long term (current) drug therapy
CPT/HCPCS: 36415; 70450; 70544; 70551; 80048; 80061; 80307; 80320; 82550; 82553; 82962; 83036; 83735; 84443; 84484; 84702; 85025; 85610; 85670; 85730; 93005; 93010; 93306; 93880; 96374; G0378; A9270-GY; G0480; J0360; J2060; J2405; J7050

== ENCOUNTER 2020-04-28 00:53 | Emergency (ER) | payer BC | END 2020-04-28 01:57 | disposition left against medical advice (07) | LOC: ED 00:53 | DX: R53.1 Weakness (principal); Z53.21 Procedure and treatment not carried out due to patient leaving prior to being seen by health care provider ==

== ENCOUNTER 2020-09-29 15:00 | Emergency (ER) | payer BC ==
[2020-09-29] MEDS ORDERED: ONDANSETRON 4 MG/2 ML INJ IV ONE (15:05)
[2020-09-29] MEDS ORDERED: ETOMIDATE 20 MG/10 ML INJ IV ONE ×2 (15:14→16:32)
[2020-09-29] MEDS ORDERED: SUCCINYLCHOLINE CHLORIDE 200 MG/10 ML INJ MDV ONE (15:14)
[2020-09-29] MEDS ORDERED: levETIRAcetam 1000 MG/NS 0.75% 1,000 MG/100 ML BAG IV ONE ×2 (15:16→16:03)
--- NOTE | 2020-09-29 15:19 | Consultation ---
History of Present Illness Consult date: 09/29/20 Medications and Allergies Allergies Allergy/AdvReac Type Severity Reaction Status Date / Time No Known Allergies Allergy Verified 01/19/16 04:03 Home Medications Medication Instructions Recorded Confirmed Last Taken Type Acetaminophen [Acetaminophen TAB] 2 tab PO Q4H PRN #15 tablet 05/21/19 Unknown Rx Aspirin 325 mg PO QDAY #30 tablet 05/21/19 Unknown Rx AtorvaSTATin [Lipitor] 40 mg PO QHS #30 tablet 05/21/19 Unknown Rx Metoprolol [Lopressor TAB] 25 mg PO BID #60 tablet 05/21/19 Unknown Rx amLODIPine 10 mg PO QDAY #30 tablet 05/21/19 Unknown Rx hydrALAZINE [Apresoline TAB] 25 mg PO Q8HR #90 tablet 05/21/19 Unknown Rx hydroCHLOROthiazide [HCTZ] 25 mg PO QDAY #30 tablet 05/21/19 Unknown Rx lisinopriL [Zestril TAB] 40 mg PO QDAY #30 tablet 05/21/19 Unknown Rx Assessment and Plan [facility] Consult Services Date of Service: 09/29/2020 15:04:38 Impression: I62.2 - Intracranial haemorrhage (nontraumatic), unspecified Comments/Sign-Out: Patient with history of stroke a year ago (had thrombectomy), hypertension Presents with left sided weakness, altered mental status Head CT: large Intracranial Hemorrhage NIHSS unreliable due to altered mental status. Etiology for Symptoms/presentation Intracranial Hemorrhage likely hypertensive. Not a candidate for IV Alteplase. Symptoms not suggestive of Large Vessel Occlusion. Metrics: Last Known Well: 09/29/2020 14:15:00 [employer] Notification Time: 09/29/2020 15:04:38 Arrival Time: 09/29/2020 15:00:00 Stamp Time: 09/29/2020 15:04:38 Time First Login Attempt: 09/29/2020 15:06:23 Symptoms: left sided weakness NIHSS Start Assessment Time: 09/29/2020 15:13:00 Patient is not a candidate for Alteplase/Activase. Patient was not deemed candidate for Alteplase/Activase thrombolytics because of Current or Previous ICH. CT head was reviewed. Clinical Presentation is not Suggestive of Large Vessel Occlusive Disease ED Physician notified of diagnostic impression and management plan on 09/29/2020 15:10:27 Our recommendations are outlined below. Recommendations: Euglycemia and Avoid Hyperthermia (PRN Acetaminophen) NPO No Anticoagulation or Antiplatelet therapy Blood pressure management per hospital protocol for Intracranial hemorrhage STAT Neurosurgery consult Consult inpatient neurology if needed. Sign Out: Discussed with Emergency Department Provider History of Present Illness: Patient is a 39 year old Female. Patient was brought by EMS for symptoms of left sided weakness Consult for Stroke Evaluation Patient with history of stroke a year ago (had thrombectomy), hypertension last known well per patient and Presenting symptoms/Chief complaint/reason for consult: 14:15 Developed slurred speech, left facial droop, left sided weakness. Anticoagulation or Antiplatelet use: unclear Chart reviewed for Pertinent medical, surgical, family history. Chart reviewed for Medications list and allergies. Pertinent positive and negative review of systems noted in History of Present Illness. Past Medical History: Stroke NIHSS may not be reliable due to: patient rapidly decompensating and in the process of intubation during encounter Examination: BP(180/114), Pulse(96), Blood Glucose(pending) 1A: Level of Consciousness - Movements to Pain + 2 1B: Ask Month and Age - Aphasic + 2 1C: Blink Eyes & Squeeze Hands - Performs 0 Tasks + 2 2: Test Horizontal Extraocular Movements - Normal + 0 3: Test Visual Noel - No Visual Loss + 0 4: Test Facial Palsy (Use Grimace if Obtunded) - Normal symmetry + 0 5A: Test Left Arm Motor Drift - No Movement + 4 5B: Test Right Arm Motor Drift - No Drift for 10 Seconds + 0 6A: Test Left Leg Motor Drift - No Movement + 4 6B: Test Right Leg Motor Drift - No Drift for 5 Seconds + 0 7: Test Limb Ataxia (FNF/Heel-[place]) - No Ataxia + 0 8: Test Sensation - Normal; No sensory loss + 0 9: Test Language/Aphasia - Mute/Global Aphasia: No Usable Speech/Auditory Comprehension + 3 10: Test Dysarthria - Mute/Anarthric + 2 11: Test Extinction/Inattention - No abnormality + 0 NIHSS Score: 19 (unreliable due to patient being critical and being intubated, did not assess gaze or vision) Due to the immediate potential for life-threatening deterioration due to underlying acute neurologic illness, I spent 12 minutes providing critical care. This time includes time for face to face visit via telemedicine, review of medical records, imaging studies and discussion of findings with providers, the patient and/or family. Dr Richar Mujica [facility] Case [id number]
[2020-09-29 15:27] LABS: Hematocrit 35.1 % (30.3-42.9); Hemoglobin 11.6 gm/dl (10.1-14.3); Mean Corpuscular HGB Conc 33 % (30-34); Mean Corpuscular Volume 91 fl (79-97); Platelet Count 236 K/mm3 (140-440); Red Blood Count 3.86 M/mm3 (3.65-5.03); Red Cell Distribution Width 18.1 % (13.2-15.2)
--- NOTE | 2020-09-29 15:34 | Cat Scan Report ---
CT HEAD WITHOUT CONTRAST INDICATION / CLINICAL INFORMATION: Cerebrovascular accident. Left-sided weakness. TECHNIQUE: All CT scans at this location are performed using CT dose reduction for ALARA by means of automated e xposure control. COMPARISON: MRI brain 05/19/2019 FINDINGS: HEMORRHAGE: A 2.7 cm diameter right thalamic hematoma is demonstrated. There is intraventricular exte nsion of hemorrhage with clot filling of the right lateral ventricle and third ventricle. Clot fills the aqueduct of Sylvius and fourth ventricle as well. There is developing hydrocephalus with enlargem ent of the left lateral ventricle. EXTRA-AXIAL SPACES: Cortical sulci, sylvian fissures and basilar cisterns have an unremarkable appear ance. VENTRICULAR SYSTEM: Evidence of developing hydrocephalus secondary to intraventricular extension of h emorrhage from the patient's large right thalamic hematoma as noted above. CEREBRAL PARENCHYMA: 2.7 cm diameter right thalamic hematoma as noted above. 2 well-circumscribed are a of decreased brain parenchymal attenuation are identified in the right frontal lobe reasonably seco ndary to remote small deep infarctions. MIDLINE SHIFT OR HERNIATION: There are about 3 mm of right to left midline shift at the level of the septum pellucidum. CEREBELLUM / BRAINSTEM: Brainstem and cerebellum have an unremarkable appearance. MIDLINE STRUCTURES:No abnormalities of the pituitary gland or pineal region are identified. INTRACRANIAL VESSELS:No abnormalities are identified on this noncontrast head CT. ORBITS: visualized portions of the orbits have an unremarkable appearance. SOFT TISSUES of HEAD: No significant abnormality. CALVARIUM: Evaluation of bone windows reveals no abnormalities. PARANASAL SINUSES / MASTOID AIR CELLS: Visualized portions of the paranasal sinuses are free from inf lammatory mucosal disease. Mastoid air cells are normally pneumatized. IMPRESSION: 1. Large, 2.7 cm diameter, right thalamic hematoma with intraventricular extension and developing hyd rocephalus. CODE STROKE: Time of Communication (BILINGUAL RECRUITER/CDT): 1424 Central standard time Licensed Practitioner Receiving Report: Dr. Ramírez of the [facility] de part[facility]. Signer Name: Santi Zepeda MD Signed: 09/29/2020 3:29 PM Workstation Name: [id number]
--- NOTE | 2020-09-29 15:35 | Emergency Department Report ---
ED Neuro Deficit HPI - General Stated Complaint: CARDIAC ARREST Time Seen by Provider: 09/29/20 15:03 Source: patient, family, EMS Mode of arrival: Stretcher Limitations: Other (aphasia) - History of Present Illness Initial Comments: Chief complaint: headache, left-sided weakness HPI: This is a 39 yo female with hx of CVA s/p thrombectomy and HTN who presents with headache, left sided-weakness, slurred speech sudden onset 2:15 PM. Patient points to right forehead at site of pain. Lucia was able to give EMS history with slurred speech. She became mute after vomiting as witnessed by EMS. Further history unobtained from patient due to severe aphasia. Medications include Atorvastatin 40 mg Hydrochlorothiazide 25 mg Lisinopril 20 mg Amlodipine 10 mg Aspirin 81 mg -: Sudden, This afternoon (2:15 PM) Location: speech, left face, left arm, left leg Presenting Symptoms: Present: Weak/Paralyzed One Side, Sudden, Severe Headache, Facial Droop/Numbness, Unable to Speak Clearly History of same: Yes Place: home Severity: severe Quality: weak Improves With: none Worsens With: none On Anticoagulants: No Context: sudden onset Associated Symptoms: headaches, nausea/vomiting - Related Data Home Medications: Home Medications Medication Instructions Recorded Confirmed Last Taken Cartilage/Collagen/Bor/Hyalur 1 each PO QDAY 09/29/20 09/29/20 Unknown [Type II Qrbvqdse-Io-Ecbon Tab] Cider Vinegar [Apple Cider Vinegar] 450 mg PO QDAY 09/29/20 09/29/20 Unknown Fenugreek Seed/Bl.thistle/Anis 230 mg PO QDAY 09/29/20 09/29/20 Unknown [Milkflow Packet] Lactobacillus Combo No.10 1 each PO QDAY 09/29/20 09/29/20 Unknown [Probiotic] Mecobalamin [B12 Active] 5,000 mcg PO QDAY 09/29/20 09/29/20 Unknown lisinopriL [Zestril TAB] 20 mg PO QDAY 09/29/20 09/29/20 Unknown Previous Rx's Medication Instructions Recorded Last Taken Type Aspirin 325 mg PO QDAY #30 tablet 05/21/19 Unknown Rx AtorvaSTATin [Lipitor] 40 mg PO QHS #30 tablet 05/21/19 Unknown Rx Metoprolol [Lopressor TAB] 25 mg PO BID #60 tablet 05/21/19 Unknown Rx amLODIPine 10 mg PO QDAY #30 tablet 05/21/19 Unknown Rx hydroCHLOROthiazide [HCTZ] 25 mg PO QDAY #30 tablet 05/21/19 Unknown Rx Allergies/Adverse Reactions: Allergies Allergy/AdvReac Type Severity Reaction Status Date / Time No Known Allergies Allergy Verified 09/29/20 16:17 ED Review of Systems ROS: Stated complaint: CARDIAC ARREST Other details as noted in HPI Comment: Unobtainable due to pts medical conditions (Limited due to patient's critical condition) ED Past Medical Hx - Past Medical History Previous Medical History?: Yes Hx Hypertension: Yes Hx Congestive Heart Failure: No Hx Diabetes: No Hx Asthma: No Hx COPD: No Hx HIV: No Additional medical history: Obesity - Surgical History Past Surgical History?: Yes Additional Surgical History: Thrombectomy - Social History Smoking Status: Never Smoker - Medications Home Medications: Home Medications Medication Instructions Recorded Confirmed Last Taken Type Aspirin 325 mg PO QDAY #30 tablet 05/21/19 09/29/20 Unknown Rx AtorvaSTATin [Lipitor] 40 mg PO QHS #30 tablet 05/21/19 09/29/20 Unknown Rx Metoprolol [Lopressor TAB] 25 mg PO BID #60 tablet 05/21/19 09/29/20 Unknown Rx amLODIPine 10 mg PO QDAY #30 tablet 05/21/19 09/29/20 Unknown Rx hydroCHLOROthiazide [HCTZ] 25 mg PO QDAY #30 tablet 05/21/19 09/29/20 Unknown Rx Cartilage/Collagen/Bor/Hyalur 1 each PO QDAY 09/29/20 09/29/20 Unknown History [Type II Gkgvqtcb-Bk-Prmym Tab] Cider Vinegar [Apple Cider Vinegar] 450 mg PO QDAY 09/29/20 09/29/20 Unknown History Fenugreek Seed/Bl.thistle/Anis 230 mg PO QDAY 09/29/20 09/29/20 Unknown History [Milkflow Packet] Lactobacillus Combo No.10 1 each PO QDAY 09/29/20 09/29/20 Unknown History [Probiotic] Mecobalamin [B12 Active] 5,000 mcg PO QDAY 09/29/20 09/29/20 Unknown History lisinopriL [Zestril TAB] 20 mg PO QDAY 09/29/20 09/29/20 Unknown History ED Neuro Physical Exam - General Limitations: Other (Aphasia) General appearance: lethargic Suspected Stroke: Yes - Head Head exam: Present: atraumatic, normocephalic - Eye Eye exam: Present: other (Equal 5 mm sluggish pupils) - ENT ENT exam: Present: mucous membranes moist - Neck Neck exam: Present: normal inspection, full ROM - Respiratory Respiratory exam: Present: normal lung sounds bilaterally. Absent: respiratory distress, wheezes, rales, rhonchi - Cardiovascular Cardiovascular Exam: Present: regular rate, normal rhythm, normal heart sounds - GI/Abdominal GI/Abdominal exam: Present: soft. Absent: distended, tenderness, guarding, rebound - Extremities Exam Extremities exam: Present: normal inspection - Neurological Exam Neurological exam: Present: other (Lethargic) - NIHSS Assessment Interval: Baseline 1a. Level of Consciousness: arousable/minor stimuli 1b. LOC Questions: aphasic 1c. LOC Commands: performs 1 task correctly 2. Best Gaze: partial gaze palsy 3. Visual: no visual loss 4. Facial Palsy: partial paralysis 5b. Motor Arm Right: no drift 5a. Motor Arm Left: no gravity effort 6a. Motor Leg Left: no gravity effort 6b. Motor Leg Right: no drift 7. Limb Ataxia: absent 8. Sensory: severe/total sensory loss 9. Best Language: severe aphasia 10. Dysarthria: severe dysarthria 11. Extinction/Inattention: complete neglect Total Score: 21 Stroke Severity: Severe Stroke ED Course Vital Signs 09/29/20 09/29/20 09/29/20 15:05 15:15 15:25 Pulse Rate 81 72 93 H Respiratory 18 12 Rate Blood Pressure 181/106 Blood Pressure 176/102 180/114 [Left] O2 Sat by Pulse 100 98 Oximetry 09/29/20 09/29/20 09/29/20 15:30 15:40 15:54 Pulse Rate 67 64 64 Respiratory Rate Blood Pressure 166/98 Blood Pressure 169/98 160/97 [Left] O2 Sat by Pulse 98 100 100 Oximetry 09/29/20 09/29/20 09/29/20 15:55 16:10 16:25 Pulse Rate 64 82 61 Respiratory Rate Blood Pressure Blood Pressure 165/97 181/106 210/102 [Left] O2 Sat by Pulse Oximetry 09/29/20 16:39 Pulse Rate 65 Respiratory Rate Blood Pressure Blood Pressure 219/196 [Left] O2 Sat by Pulse Oximetry - Intubation Time Out Performed: Yes Sedative: Etomidate Mg Given: 20 Paralytic: Succinylcholine Mg Given: 160 Laryngoscope: fiberoptic video scope (MAC 4) Size: 4 ET Tube Size: 7.5 Tube Secured Depth (cm): 20 Tube Secured Location: lips Tube Placement Confirmation: visualized tube passing t, equal breath sounds bilat, no breath sounds over epi Patient Tolerated Procedure: well Intubation Complications: none Additional Comments: +color change CO2 colorimeter - Lab Data Result diagrams: 09/29/20 15:17 09/29/20 15:17 Lab Results 09/29/20 09/29/20 Range/Units 15:17 15:17 WBC 4.1 L (4.5-11.0) K/mm3 RBC 3.86 (3.65-5.03) M/mm3 Hgb 11.6 (10.1-14.3) gm/dl Hct 35.1 (30.3-42.9) % MCV 91 (79-97) fl MCH 30 (28-32) pg MCHC 33 (30-34) % RDW 18.1 H (13.2-15.2) % Plt Count 236 (140-440) K/mm3 Lymph % (Auto) Gas Dispatcher Add Manual Diff Complete Total Counted 100 Seg Neutrophils % Gas Dispatcher Seg Neuts % (Manual) 50.0 (40.0-70.0) % Lymphocytes % (Manual) 41.0 H (13.4-35.0) % Monocytes % (Manual) 2.0 (0.0-7.3) % Eosinophils % (Manual) 3.0 (0.0-4.3) % Basophils % (Manual) 1.0 (0.0-1.8) % Metamyelocytes % 2.0 % Myelocytes % 1.0 % Nucleated RBC % Not Reportable Seg Neutrophils # Man 2.1 (1.8-7.7) K/mm3 Band Neutrophils # 0.0 K/mm3 Lymphocytes # (Manual) 1.7 (1.2-5.4) K/mm3 Abs React Lymphs (Man) 0.0 K/mm3 Monocytes # (Manual) 0.1 (0.0-0.8) K/mm3 Eosinophils # (Manual) 0.1 (0.0-0.4) K/mm3 Basophils # (Manual) 0.0 (0.0-0.1) K/mm3 Metamyelocytes # 0.1 K/mm3 Myelocytes # 0.0 K/mm3 Promyelocytes # 0.0 K/mm3 Blast Cells # 0.0 K/mm3 WBC Morphology Not Reportable Hypersegmented Neuts Not Reportable Hyposegmented Neuts Not Reportable Hypogranular Neuts Not Reportable Smudge Cells Not Reportable Toxic Granulation Not Reportable Toxic Vacuolation Not Reportable Dohle Bodies Not Reportable Pelger-Huet Anomaly Not Reportable Compa Rods Not Reportable Platelet Estimate Consistent w auto Clumped Platelets Not Reportable Plt Clumps, EDTA Not Reportable Large Platelets Not Reportable Giant Platelets Not Reportable Platelet Satelliting Not Reportable Plt Morphology Comment Not Reportable RBC Morphology Not Reportable Dimorphic RBCs Not Reportable Polychromasia Not Reportable Hypochromasia Not Reportable Poikilocytosis Not Reportable Anisocytosis Not Reportable Microcytosis Not Reportable Macrocytosis Not Reportable Spherocytes Not Reportable Pappenheimer Bodies Not Reportable Sickle Cells Not Reportable Target Cells Not Reportable Tear Drop Cells Not Reportable Ovalocytes Not Reportable Helmet Cells Not Reportable [place] Bodies Not Reportable [place] Rings Not Reportable Priscila Cells Not Reportable Bite Cells Not Reportable Crenated Cell Not Reportable Elliptocytes Not Reportable Acanthocytes (Spur) Not Reportable Rouleaux Not Reportable Hemoglobin C Crystals Not Reportable Schistocytes Few Malaria parasites Not Reportable Saurabh Bodies Not Reportable Hem Pathologist Commnt No Sodium 136 L (137-145) mmol/L Potassium 3.1 L (3.6-5.0) mmol/L Chloride 99.3 (98-107) mmol/L Carbon Dioxide 28 (22-30) mmol/L Anion Gap 12 mmol/L BUN 8 (7-17) mg/dL Creatinine 0.7 (0.6-1.2) mg/dL Estimated GFR > 60 ml/min BUN/Creatinine Ratio 11 % Glucose 126 H (65-100) mg/dL Calcium 8.7 (8.4-10.2) mg/dL Total Bilirubin 0.20 (0.1-1.2) mg/dL AST 30 (5-40) units/L ALT 31 (7-56) units/L Alkaline Phosphatase 35 (35-129) units/L Troponin T < 0.010 (0.00-0.029) ng/mL Total Protein 7.7 (6.3-8.2) g/dL Albumin 4.0 (3.9-5) g/dL Albumin/Globulin Ratio 1.1 % - Radiology Data Radiology results: report reviewed, image reviewed CT HEAD WITHOUT CONTRAST INDICATION / CLINICAL INFORMATION: Cerebrovascular accident. Left-sided weakness. TECHNIQUE: All CT scans at this location are performed using CT dose reduction for ALARA by means of automated exposure control. COMPARISON: MRI brain 05/19/2019 FINDINGS: HEMORRHAGE: A 2.7 cm diameter right thalamic hematoma is demonstrated. There is intraventricular extension of hemorrhage with clot filling of the right lateral ventricle and third ventricle. Clot fills the aqueduct of Sylvius and fourth ventricle as well. There is developing hydrocephalus with enlargement of the left lateral ventricle. EXTRA-AXIAL SPACES: Cortical sulci, sylvian fissures and basilar cisterns have an unremarkable appearance. VENTRICULAR SYSTEM: Evidence of developing hydrocephalus secondary to intraventricular extension of hemorrhage from the patient's large right thalamic hematoma as noted above. CEREBRAL PARENCHYMA: 2.7 cm diameter right thalamic hematoma as noted above. 2 well-circumscribed area of decreased brain parenchymal attenuation are identified in the right frontal lobe reasonably secondary to remote small deep infarctions. MIDLINE SHIFT OR HERNIATION: There are about 3 mm of right to left midline shift at the level of the septum pellucidum. CEREBELLUM / BRAINSTEM: Brainstem and cerebellum have an unremarkable appearance. MIDLINE STRUCTURES:No abnormalities of the pituitary gland or pineal region are identified. INTRACRANIAL VESSELS:No abnormalities are identified on this noncontrast head CT. ORBITS: visualized portions of the orbits have an unremarkable appearance. SOFT TISSUES of HEAD: No significant abnormality. CALVARIUM: Evaluation of bone windows reveals no abnormalities. PARANASAL SINUSES / MASTOID AIR CELLS: Visualized portions of the paranasal sinuses are free from inflammatory mucosal disease. Mastoid air cells are normally pneumatized. IMPRESSION: 1. Large, 2.7 cm diameter, right thalamic hematoma with intraventricular extension and developing hydrocephalus. - Medical Decision Making Code stroke initiated upon patient's arrival. Patient's level of consciousness continue to decrease. She was not handling her secretions after returning from CT scan. RSI performed for airway control. After reviewing images and speaking with radiologist, I spoke with neurosurgeon on-call who recommended transfer immediately to a center with neurosurgical capabilities. I spoke with Dr. Doyle neuro composite layup worker who accepted patient. Dr. Jacob neurosurgery will be the accepting physician. Patient received nicardipine for blood pressure control. Also received Keppra. ETT was adjusted after reviewing chest radiograph and speaking with radiologist who was concerned ETT was close to barbara. Chemistry notable for hypokalemia Critical Care Time: Yes Critical care time in (mins) excluding proc time.: 40 Critical care attestation.: If time is entered above; I have spent that time in minutes in the direct care of this critically ill patient, excluding procedure time. 40 minutes of critical care time excluding procedures were used in the care of the patient. I came immediately to the bedside upon patient's arrival. I obtained history from EMS at the bedside. I discussed treatment plan with the nursing team members. I reviewed electronic record. I kept the family member informed. Patient required multiple interventions and reassessments. ED Disposition Clinical Impression: Hemorrhagic cerebrovascular accident (CVA), Thalamic hemorrhage with stroke, Hypertensive emergency Disposition: DC/TX-70 ANOTHER TYPE HLTHCARE Is pt being admited?: No Does the pt Need Aspirin: No Condition: Critical Instructions: Hypertension (ED)
[2020-09-29] MEDS ORDERED: ONDANSETRON 4 MG/2 ML INJ ONE (15:54)
--- NOTE | 2020-09-29 16:03 | XRay Report ---
CHEST 1 VIEW INDICATION: vomiting stroke symptoms. COMPARISON: None FINDINGS: Support devices: Endotracheal tube is difficult to identify but appears to terminate at the barbara or just within the right mainstem bronchus. Consider retraction by 3-4 cm. The sidehole of the nasogast modesto tube terminates in the distal esophagus. Advancement by at least 10 cm should be considered. Heart: Mild cardiomegaly. Lungs/Pleura: No acute air space or interstitial disease. Additional findings: None. IMPRESSION: Recommend repositioning of the endotracheal tube and nasogastric tube as described. Cardiomegaly. Lungs clear. CRITICAL RESULT: Time of Discovery (PARTS SALES REPRESENTATIVE/CDT): 1455 hours Time of Communication (PARTS SALES REPRESENTATIVE/CDT): 1459 hours Licensed Practitioner Receiving Report: Dr. Keys Read-Back Performed: Yes. Signer Name: Parish Abreu Jr, MD Signed: 09/29/2020 3:59 PM Workstation Name: [id number]
[2020-09-29] MEDS ORDERED: niCARdipine DRIP 40 MG/200 ML BAG IV ONE (16:04)
[2020-09-29 16:07] LABS: Alanine Aminotransferase 31 units/L (7-56); Blood Urea Nitrogen 8 mg/dL (7-17); Calcium 8.7 mg/dL (8.4-10.2); Hemolysis Index 14
[2020-09-29] MEDS ORDERED: LIP THERAPY VASELINE TP PRN (16:07)
[2020-09-29] MEDS ORDERED: MINERAL OIL/PETROLATUM, WHITE OPHTH OINT 3.5 GM OU PRN (16:07)
[2020-09-29 16:12] LABS: BUN/Creatinine Ratio 11
[2020-09-29] MEDS ORDERED: SUCCINYLCHOLINE CHLORIDE 200 MG/10 ML INJ MDV IV ONE (16:32)
[2020-09-29 16:40] LABS: Total Cells Counted 100
[2020-09-29 16:41] LABS: Platelet Estimate Consistent w Auto; Schistocytes Few
[2020-09-29 17:10] LABS: ABG Base Excess 0.3 mmol/L (-2.0-3.0); ABG HCO3 25.8 mmol/L (20.0-26.0); ABG Methemoglobin 0.5 % (0.0-1.5); ABG Oxygen Saturation 99.2 % (95.0-99.0); ABG PCO2 45.1 mm Hg; ABG PH 7.375 pH Units (7.350-7.450); ABG PO2 194.2 mm Hg (80.0-90.0)
[2020-09-29 19:46] VITALS: BP 163/86
== END 2020-09-29 19:45 | disposition other institution (70) ==
LOC: ED 15:00
DX: I63.9 Cerebral infarction, unspecified (principal); I10 Essential (primary) hypertension; Z98.890 Other specified postprocedural states; Z79.899 Other long term (current) drug therapy
CPT/HCPCS: 31500; 36415; 70450; 71045; 80053; 82803; 84484; 85007; 85025; 93005; 96365; 96366; 96375; 99291; J0330; J1953; J2405; 94002

== ENCOUNTER 2021-07-13 13:56 | Emergency (ER) | payer BC, MEDICAID ==
--- NOTE | 2021-07-13 15:32 | XRay Report ---
XR chest 1V ap INDICATION / CLINICAL INFORMATION: sob. COMPARISON: 09/29/2020 FINDINGS: SUPPORT DEVICES: Tracheostomy device projects in expected position. HEART /PULMONARY VASCULATURE: The cardiac silhouette is enlarged. Pulmonary vasculature is mildly pro minent. LUNGS / PLEURA: No focal airspace consolidation. No sizable pleural effusion. No pneumothorax. ADDITIONAL FINDINGS: No significant additional findings. IMPRESSION: Cardiomegaly with mild prominence of the pulmonary vasculature, may reflect mild CHF. Signer Name: Hugo Nevarez MD Signed: 07/13/2021 3:28 PM Workstation Name: [id number]
--- NOTE | 2021-07-13 16:13 | Emergency Department Report ---
ED Shortness of Breath HPI - General Chief Complaint: Dyspnea/Respdistress Stated Complaint: SALVADOR Time Seen by Provider: 07/13/21 14:15 Source: EMS Mode of arrival: Stretcher Limitations: No Limitations - History of Present Illness Initial Comments: 40-year-old female, history of ischemic and hemorrhagic CVA, presents to ED for tracheostomy suctioning. Family arrived by EMS. EMS reported that the family has been suctioning patient over the last 2 days and is now requesting assistance. Patient denies shortness of breath. MD Complaint: shortness of breath -: days(s) (2) Severity: mild Known History Of: other (Tracheostomy) - Related Data Home Medications Medication Instructions Recorded Confirmed Last Taken Cartilage/Collagen/Bor/Hyalur 1 each PO QDAY 09/29/20 09/29/20 Unknown [Type II Grhgtcvd-Gq-Dpvju Tab] Cider Vinegar [Apple Cider Vinegar] 450 mg PO QDAY 09/29/20 09/29/20 Unknown Fenugreek Seed/Bl.thistle/Anis 230 mg PO QDAY 09/29/20 09/29/20 Unknown [Milkflow Packet] Lactobacillus Combo No.10 1 each PO QDAY 09/29/20 09/29/20 Unknown [Probiotic] Mecobalamin [B12 Active] 5,000 mcg PO QDAY 09/29/20 09/29/20 Unknown lisinopriL [Zestril TAB] 20 mg PO QDAY 09/29/20 09/29/20 Unknown Previous Rx's Medication Instructions Recorded Last Taken Type Aspirin 325 mg PO QDAY #30 tablet 05/21/19 Unknown Rx AtorvaSTATin [Lipitor] 40 mg PO QHS #30 tablet 05/21/19 Unknown Rx Metoprolol [Lopressor TAB] 25 mg PO BID #60 tablet 05/21/19 Unknown Rx amLODIPine 10 mg PO QDAY #30 tablet 05/21/19 Unknown Rx hydroCHLOROthiazide [HCTZ] 25 mg PO QDAY #30 tablet 05/21/19 Unknown Rx Allergies Allergy/AdvReac Type Severity Reaction Status Date / Time No Known Allergies Allergy Verified 09/29/20 16:17 ED Review of Systems ROS: Stated complaint: SALVADOR Other details as noted in HPI Comment: All other systems reviewed and negative Respiratory: shortness of breath ED Past Medical Hx - Past Medical History Hx Hypertension: Yes Hx CVA: Yes Hx Congestive Heart Failure: No Hx Diabetes: No Hx Asthma: No Hx COPD: No Hx HIV: No Additional medical history: Obesity - Surgical History Additional Surgical History: Thrombectomy - Social History Smoking Status: Never Smoker - Medications Home Medications: Home Medications Medication Instructions Recorded Confirmed Last Taken Type Aspirin 325 mg PO QDAY #30 tablet 05/21/19 09/29/20 Unknown Rx AtorvaSTATin [Lipitor] 40 mg PO QHS #30 tablet 05/21/19 09/29/20 Unknown Rx Metoprolol [Lopressor TAB] 25 mg PO BID #60 tablet 05/21/19 09/29/20 Unknown Rx amLODIPine 10 mg PO QDAY #30 tablet 05/21/19 09/29/20 Unknown Rx hydroCHLOROthiazide [HCTZ] 25 mg PO QDAY #30 tablet 05/21/19 09/29/20 Unknown Rx Cartilage/Collagen/Bor/Hyalur 1 each PO QDAY 09/29/20 09/29/20 Unknown History [Type II Dyxvnuti-Za-Jeobl Tab] Cider Vinegar [Apple Cider Vinegar] 450 mg PO QDAY 09/29/20 09/29/20 Unknown His tory Fenugreek Seed/Bl.thistle/Anis 230 mg PO QDAY 09/29/20 09/29/20 Unknown History [Milkflow Packet] Lactobacillus Combo No.10 1 each PO QDAY 09/29/20 09/29/20 Unknown History [Probiotic] Mecobalamin [B12 Active] 5,000 mcg PO QDAY 09/29/20 09/29/20 Unknown History lisinopriL [Zestril TAB] 20 mg PO QDAY 09/29/20 09/29/20 Unknown History ED Physical Exam - General Limitations: No Limitations General appearance: alert, in no apparent distress - Head Head exam: Present: atraumatic, normocephalic - Eye Eye exam: Present: normal appearance, EOMI - ENT ENT exam: Present: mucous membranes moist, other (Tracheostomy present) - Neck Neck exam: Present: normal inspection - Respiratory Respiratory exam: Present: rhonchi. Absent: respiratory distress - GI/Abdominal GI/Abdominal exam: Present: soft, other (PEG tube in place). Absent: distended, tenderness - Extremities Exam Extremities exam: Present: normal inspection - Neurological Exam Neurological exam: Present: alert, other (Patient seems to be nonverbal, shakes head yes and no, follows commands) - Psychiatric Psychiatric exam: Present: normal affect, normal mood - Skin Skin exam: Present: warm, dry, intact, normal color ED Course Vital Signs 07/13/21 07/13/21 07/13/21 13:59 14:15 14:31 Temperature 98.2 F Pulse Rate 68 61 Respiratory 18 13 Rate Blood Pressure 135/81 Blood Pressure 136/90 [Left] O2 Sat by Pulse 97 98 99 Oximetry O2 Sat by Pulse Oximetry [ Assessment] 07/13/21 07/13/21 07/13/21 14:45 15:00 15:01 Temperature Pulse Rate 50 L 56 L Respiratory 14 13 Rate Blood Pressure 139/85 125/69 Blood Pressure [Left] O2 Sat by Pulse 100 100 Oximetry O2 Sat by Pulse 100 Oximetry [ Assessment] 07/13/21 07/13/21 07/13/21 15:15 15:31 15:45 Temperature Pulse Rate 52 L 55 L 59 L Respiratory 13 14 13 Rate Blood Pressure 131/70 128/75 126/70 Blood Pressure [Left] O2 Sat by Pulse 100 85 Oximetry O2 Sat by Pulse Oximetry [ Assessment] 07/13/21 07/13/21 07/13/21 16:01 16:15 16:31 Temperature Pulse Rate 67 59 L 61 Respiratory 12 10 L 12 Rate Blood Pressure 141/71 128/75 127/70 Blood Pressure [Left] O2 Sat by Pulse Oximetry O2 Sat by Pulse Oximetry [ Assessment] 07/13/21 07/13/21 07/13/21 16:45 17:01 17:15 Temperature Pulse Rate 56 L 47 L 46 L Respiratory 12 12 11 L Rate Blood Pressure 142/68 141/76 133/71 Blood Pressure [Left] O2 Sat by Pulse Oximetry O2 Sat by Pulse Oximetry [ Assessment] 07/13/21 07/13/21 07/13/21 17:31 17:45 18:01 Temperature Pulse Rate 53 L 54 L 61 Respiratory 13 12 14 Rate Blood Pressure 133/71 125/81 144/78 Blood Pressure [Left] O2 Sat by Pulse Oximetry O2 Sat by Pulse Oximetry [ Assessment] 07/13/21 07/13/21 07/13/21 18:15 18:31 18:45 Temperature Pulse Rate 67 51 L 65 Respiratory 13 12 10 L Rate Blood Pressure 139/77 159/75 159/75 Blood Pressure [Left] O2 Sat by Pulse Oximetry O2 Sat by Pulse Oximetry [ Assessment] ED Medical Decision Making - Radiology Data Radiology results: report reviewed, image reviewed - Medical Decision Making 40-year-old female presents to ED for tracheostomy care. Patient sent by family for shortness of breath. Patient is in no respiratory distress. O2 sats are normal. Patient seen, assessed, and suction by respiratory therapist. Rhonchi is much improved. Chest x-ray shows prominent vasculature, no evidence of pneumonia or effusion. Patient will be discharged at this time. Outpatient follow-up advised, return precautions given. - Differential Diagnosis Pneumonia Critical care attestation.: If time is entered above; I have spent that time in minutes in the direct care of this critically ill patient, excluding procedure time. ED Disposition Clinical Impression: Encounter for attention to tracheostomy Disposition: 01 HOME / SELF CARE / HOMELESS Is pt being admited?: No Condition: Stable Instructions: How to Suction a Tracheostomy Tube, Adult Referrals: PRIMARY CAREMD [Primary Care Provider] - 3-5 Days Time of Disposition: 15:58
[2021-07-13 19:37] VITALS: BP 127/97
== END 2021-07-13 20:15 | disposition home or self-care (01) ==
LOC: ED 13:56
DX: R06.02 Shortness of breath (principal); I10 Essential (primary) hypertension
CPT/HCPCS: 71045; 99283

== ENCOUNTER 2021-11-18 00:09 | Emergency (ER) | payer MEDICAID ==
--- NOTE | 2021-11-18 01:07 | Emergency Department Report ---
ED General Adult HPI - General Stated complaint: TRACHEOSTOMY CAME OUT Time Seen by Provider: 11/18/21 00:28 Source: patient, EMS - History of Present Illness Initial comments: Patient is 40 years old female with history of hemorrhagic CVA and chronic tracheostomy. Patient brought to the emergency room by EMS from home for tracheostomy care. EMS stated that patient tracheostomy came out and unable to replace it in. Patient vital sign remained stable with oxygen saturation of 99%. Patient denied any fever or chills. No shortness of breath or difficulty in breathing. - Related Data Home Medications Medication Instructions Recorded Confirmed Last Taken Cartilage/Collagen/Bor/Hyalur 1 each PO QDAY 09/29/20 09/29/20 Unknown [Type II Qrooqiym-Xz-Jrshc Tab] Cider Vinegar [Apple Cider Vinegar] 450 mg PO QDAY 09/29/20 09/29/20 Unknown Fenugreek Seed/Bl.thistle/Anis 230 mg PO QDAY 09/29/20 09/29/20 Unknown [Milkflow Packet] Lactobacillus Combo No.10 1 each PO QDAY 09/29/20 09/29/20 Unknown [Probiotic] Mecobalamin [B12 Active] 5,000 mcg PO QDAY 09/29/20 09/29/20 Unknown lisinopriL [Zestril TAB] 20 mg PO QDAY 09/29/20 09/29/20 Unknown Previous Rx's Medication Instructions Recorded Last Taken Type Aspirin 325 mg PO QDAY #30 tablet 05/21/19 Unknown Rx AtorvaSTATin [Lipitor] 40 mg PO QHS #30 tablet 05/21/19 Unknown Rx Metoprolol [Lopressor TAB] 25 mg PO BID #60 tablet 05/21/19 Unknown Rx amLODIPine 10 mg PO QDAY #30 tablet 05/21/19 Unknown Rx hydroCHLOROthiazide [HCTZ] 25 mg PO QDAY #30 tablet 05/21/19 Unknown Rx Allergies Allergy/AdvReac Type Severity Reaction Status Date / Time No Known Allergies Allergy Verified 09/29/20 16:17 ED Review of Systems ROS: Stated complaint: TRACHEOSTOMY CAME OUT Other details as noted in HPI Comment: All other systems reviewed and negative Constitutional: denies: chills, fever Respiratory: denies: cough, shortness of breath, SOB with exertion Cardiovascular: denies: chest pain, palpitations Gastrointestinal: denies: abdominal pain, nausea, vomiting Musculoskeletal: denies: back pain Neurological: denies: headache, weakness ED Past Medical Hx - Past Medical History Hx Hypertension: Yes Hx CVA: Yes Hx Congestive Heart Failure: No Hx Diabetes: No Hx Asthma: No Hx COPD: No Hx HIV: No Additional medical history: Obesity - Surgical History Additional Surgical History: Thrombectomy - Social History Smoking Status: Never Smoker - Medications Home Medications: Home Medications Medication Instructions Recorded Confirmed Last Taken Type Aspirin 325 mg PO QDAY #30 tablet 05/21/19 09/29/20 Unknown Rx AtorvaSTATin [Lipitor] 40 mg PO QHS #30 tablet 05/21/19 09/29/20 Unknown Rx Metoprolol [Lopressor TAB] 25 mg PO BID #60 tablet 05/21/19 09/29/20 Unknown Rx amLODIPine 10 mg PO QDAY #30 tablet 05/21/19 09/29/20 Unknown Rx hydroCHLOROthiazide [HCTZ] 25 mg PO QDAY #30 tablet 05/21/19 09/29/20 Unknown Rx Cartilage/Collagen/Bor/Hyalur 1 each PO QDAY 09/29/20 09/29/20 Unknown History [Type II Bwrdrqtv-Fe-Xvfqd Tab] Cider Vinegar [Apple Cider Vinegar] 450 mg PO QDAY 09/29/20 09/29/20 Unknown History Fenugreek Seed/Bl.thistle/Anis 230 mg PO QDAY 09/29/20 09/29/20 Unknown History [Milkflow Packet] Lactobacillus Combo No.10 1 each PO QDAY 09/29/20 09/29/20 Unknown History [Probiotic] Mecobalamin [B12 Active] 5,000 mcg PO QDAY 09/29/20 09/29/20 Unknown History lisinopriL [Zestril TAB] 20 mg PO QDAY 09/29/20 09/29/20 Unknown History ED Physical Exam - General General appearance: alert, in no apparent distress - Head Head exam: Present: atraumatic, normocephalic, normal inspection - Eye Eye exam: Present: normal appearance - ENT ENT exam: Present: normal exam, normal orophraynx, mucous membranes moist - Neck Neck exam: Present: normal inspection, full ROM. Absent: tenderness, meningismus - Respiratory Respiratory exam: Present: normal lung sounds bilaterally - Cardiovascular Cardiovascular Exam: Present: regular rate, normal rhythm, normal heart sounds - GI/Abdominal GI/Abdominal exam: Present: soft, normal bowel sounds, other (PEG tube in place.). Absent: distended, tenderness, guarding, rebound, rigid - Extremities Exam Extremities exam: Present: normal inspection - Neurological Exam Neurological exam: Present: alert ED Medical Decision Making - Medical Decision Making Patient is 40 years old female with history of hemorrhagic CVA and chronic tracheostomy. Patient brought to the emergency room by EMS from home for tracheostomy care. EMS stated that patient tracheostomy came out and unable to replace it in. Patient vital sign remained stable with oxygen saturation of 99%. Patient denied any fever or chills. No shortness of breath or difficulty in breathing. Tracheostomy tube placed in with no difficulties. Patient stated that she is feeling better. Patient be discharged home to follow-up with her primary care physician and to return to the ER if she develop any new symptoms. Critical care attestation.: If time is entered above; I have spent that time in minutes in the direct care of this critically ill patient, excluding procedure time. ED Disposition Clinical Impression: Tracheostomy complication Disposition: 01 HOME / SELF CARE / HOMELESS Is pt being admited?: No Condition: Stable Instructions: Tracheostomy and Tracheostomy Tube Safety and Care, Adult, Tracheostomy Referrals: PRIMARY CARE, [Referring] - 3-5 Days
[2021-11-18 02:48] VITALS: BP 106/72
== END 2021-11-18 01:51 | disposition home or self-care (01) ==
LOC: ED 00:09
DX: J95.09 Other tracheostomy complication (principal)
CPT/HCPCS: 99283

== ENCOUNTER 2021-12-02 00:10 | Emergency (ER) | payer MEDICAID ==
[2021-12-02 00:34] VITALS: BP 125/72
--- NOTE | 2021-12-02 00:48 | Emergency Department Report ---
ED Medical Clearance HPI - General Chief complaint: Medical Clearance Stated complaint: TRACHEOSTOMY TUBE CAME OUT Time Seen by Provider: 12/02/21 00:44 Source: family, EMS Mode of arrival: Stretcher - History of Present Illness Initial comments: pt brought in via EMS due to tracheostomy coming out. Pt's family stated that it has been out for a hour and a half now -: Gradual, hour(s) (1) Associated Symptoms: denies: chest pain, shortness of breath, palpitations, diaphoresis, denies other symptoms, confusion Home medications: Home Medications Medication Instructions Recorded Confirmed Last Taken Cartilage/Collagen/Bor/Hyalur 1 each PO QDAY 09/29/20 09/29/20 Unknown [Type II Kvexplzo-Et-Qtwql Tab] Cider Vinegar [Apple Cider Vinegar] 450 mg PO QDAY 09/29/20 09/29/20 Unknown Fenugreek Seed/Bl.thistle/Anis 230 mg PO QDAY 09/29/20 09/29/20 Unknown [Milkflow Packet] Lactobacillus Combo No.10 1 each PO QDAY 09/29/20 09/29/20 Unknown [Probiotic] Mecobalamin [B12 Active] 5,000 mcg PO QDAY 09/29/20 09/29/20 Unknown lisinopriL [Zestril TAB] 20 mg PO QDAY 09/29/20 09/29/20 Unknown Previous Rx's Medication Instructions Recorded Last Taken Type Aspirin 325 mg PO QDAY #30 tablet 05/21/19 Unknown Rx AtorvaSTATin [Lipitor] 40 mg PO QHS #30 tablet 05/21/19 Unknown Rx Metoprolol [Lopressor TAB] 25 mg PO BID #60 tablet 05/21/19 Unknown Rx amLODIPine 10 mg PO QDAY #30 tablet 05/21/19 Unknown Rx hydroCHLOROthiazide [HCTZ] 25 mg PO QDAY #30 tablet 05/21/19 Unknown Rx Allergies/Adverse reactions: Allergies Allergy/AdvReac Type Severity Reaction Status Date / Time No Known Allergies Allergy Verified 09/29/20 16:17 ED Review of Systems ROS: Stated complaint: TRACHEOSTOMY TUBE CAME OUT Other details as noted in HPI Constitutional: denies: chills, fever Eyes: denies: eye pain, eye discharge, vision change ENT: denies: ear pain, throat pain Respiratory: denies: cough, shortness of breath, wheezing Cardiovascular: denies: chest pain, palpitations Endocrine: no symptoms reported Gastrointestinal: denies: abdominal pain, nausea, diarrhea Genitourinary: denies: urgency, dysuria, discharge Musculoskeletal: denies: back pain, joint swelling, arthralgia Skin: denies: rash, lesions Neurological: denies: headache, weakness, paresthesias Psychiatric: denies: anxiety, depression Hematological/Lymphatic: denies: easy bleeding, easy bruising ED Past Medical Hx - Past Medical History Hx Hypertension: Yes Hx CVA: Yes Hx Congestive Heart Failure: No Hx Diabetes: No Hx Asthma: No Hx COPD: No Hx HIV: No Additional medical history: Obesity - Surgical History Additional Surgical History: Thrombectomy - Social History Smoking Status: Never Smoker - Medications Home Medications: Home Medications Medication Instructions Recorded Confirmed Last Taken Type Aspirin 325 mg PO QDAY #30 tablet 05/21/19 09/29/20 Unknown Rx AtorvaSTATin [Lipitor] 40 mg PO QHS #30 tablet 05/21/19 09/29/20 Unknown Rx Metoprolol [Lopressor TAB] 25 mg PO BID #60 tablet 05/21/19 09/29/20 Unknown Rx amLODIPine 10 mg PO QDAY #30 tablet 05/21/19 09/29/20 Unknown Rx hydroCHLOROthiazide [HCTZ] 25 mg PO QDAY #30 tablet 05/21/19 09/29/20 Unknown Rx Cartilage/Collagen/Bor/Hyalur 1 each PO QDAY 09/29/20 09/29/20 Unknown History [Type II Ttethdzr-Sh-Iwifa Tab] Cider Vinegar [Apple Cider Vinegar] 450 mg PO QDAY 09/29/20 09/29/20 Unknown History Fenugreek Seed/Bl.thistle/Anis 230 mg PO QDAY 09/29/20 09/29/20 Unknown History [Milkflow Packet] Lactobacillus Combo No.10 1 each PO QDAY 09/29/20 09/29/20 Unknown History [Probiotic] Mecobalamin [B12 Active] 5,000 mcg PO QDAY 09/29/20 09/29/20 Unknown History lisinopriL [Zestril TAB] 20 mg PO QDAY 09/29/20 09/29/20 Unknown History ED Physical Exam - General Limitations: Language Barrier General appearance: alert, in no apparent distress - Head Head exam: Present: atraumatic, normocephalic - Eye Eye exam: Present: normal appearance - ENT ENT exam: Present: mucous membranes moist - Neck Neck exam: Present: normal inspection - Expanded Neck Exam Expanded Neck exam: Present: other (trach track inflammed ) - Respiratory Respiratory exam: Present: normal lung sounds bilaterally. Absent: respiratory distress - Cardiovascular Cardiovascular Exam: Present: regular rate, normal rhythm. Absent: systolic m urmur, diastolic murmur, rubs, gallop - GI/Abdominal GI/Abdominal exam: Present: soft, normal bowel sounds - Extremities Exam Extremities exam: Present: normal inspection - Back Exam Back exam: Present: normal inspection - Neurological Exam Neurological exam: Present: alert, oriented X3 - Psychiatric Psychiatric exam: Present: normal affect, normal mood - Skin Skin exam: Present: warm, dry, intact, normal color. Absent: rash ED Course Vital Signs 12/02/21 00:33 Pulse Rate 72 Respiratory 16 Rate Blood Pressure 125/72 [Right] O2 Sat by Pulse 98 Oximetry - Reevaluation(s) Reevaluation #1: 12/02/21 00:47 track is closed couldn;t insert one , no distress , will dress it ED Disposition Clinical Impression: Tracheostomy complication, Tracheostomy care Disposition: 01 HOME / SELF CARE / HOMELESS Is pt being admited?: No Does the pt Need Aspirin: No Condition: Stable Instructions: How to Clean a Tracheostomy and Replace Tracheostomy Ties, Adult
== END 2021-12-02 01:42 | disposition home or self-care (01) ==
LOC: ED 00:10
DX: J95.03 Malfunction of tracheostomy stoma (principal); I10 Essential (primary) hypertension
CPT/HCPCS: 99283